=== PATIENT | female | born 1945 | race Caucasian/White ===

== ENCOUNTER 2019-11-20 08:49 | Outpatient (CLI) | payer MEDICARE, SELFPAY ==
--- NOTE | ~2019-11-20 | MM_ITS ---
EXAMINATION: MM screening [facility] BI w mary HISTORY: Screening mammogram TECHNIQUE: Craniocaudal and mediolateral oblique 3-D tomosynthesis images were obtained and synthetic 2-D images were generated. CAD analysis was submitted and interpreted. COMPARISON: 11/07/2018, 04/26/2018, 11/14/2017, 11/02/2017 BREAST PARENCHYMAL COMPOSITION: The breasts are heterogeneously dense, which may obscure small masses . FINDINGS: Scattered benign-appearing calcifications are present. There is no evidence of suspicious m ass, calcification, or architectural distortion to suggest malignancy in either breast. There has bee n no suspicious interval change. IMPRESSION: 1. No mammographic evidence of malignancy. 2. Recommend routine screening mammography in one year. BI-RADS Category 2: Benign finding(s). Reviewed, dictated and finalized at location A. 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
== END 2019-11-20 08:50 | disposition home or self-care (01) ==
LOC: ANHIMG 08:57
PROVIDERS: PCP Physician Assistant; Visit Provider Physician Assistant
DX: Z12.31 Encounter for screening mammogram for malignant neoplasm of breast (principal)
CPT/HCPCS: 77063; 77067

== ENCOUNTER 2020-12-17 09:44 | Outpatient (CLI) | payer MEDICARE, SELFPAY ==
--- NOTE | ~2020-12-17 | MM_ITS ---
EXAMINATION: MM screening [facility] w mary HISTORY: Screening TECHNIQUE: Craniocaudal and mediolateral oblique 3-D tomosynthesis images were obtained and synthetic 2-D images were generated. CAD analysis was submitted and interpreted. COMPARISON: Comparison to multiple prior studies sequentially, with oldest reviewed study dated 11/14. BREAST PARENCHYMAL COMPOSITION: The breasts are heterogeneously dense, which may obscure small masses . FINDINGS: There is no evidence of suspicious mass, calcification, or architectural distortion to sugg est malignancy in either breast. There has been no suspicious interval change. IMPRESSION: 1. No mammographic evidence of malignancy. 2. Recommend routine screening mammography in one year. BI-RADS Category 1: Negative Reviewed, dictated and finalized at location A.
== END 2020-12-17 09:45 | disposition home or self-care (01) ==
LOC: ANHIMG 09:46
PROVIDERS: PCP Physician Assistant; Visit Provider Physician Assistant
DX: Z12.31 Encounter for screening mammogram for malignant neoplasm of breast (principal)
CPT/HCPCS: 77063; 77067

== ENCOUNTER 2021-12-30 09:03 | Outpatient (CLI) | payer MEDICARE, SELFPAY ==
--- NOTE | ~2021-12-30 | DEXA_ITS ---
Bone Density Report Name: MEDINA CONNER Age: 76 Sex: Female Ethnicity: White Date of : 1945 Indication: postmenopausal; height loss; hysterectomy; Referring Provider: ELIZABETH, SPIKE MARADIAGA Study: Bone densitometry was performed. Exam Date: December 30, 2021 Accession number: [id number] Bone Density: Region BMD T-score Z-score Classification AP Spine (L1-L4) 0.934 -1.0 1.3 Normal Femoral Neck (Left) 0.883 0.3 2.4 Normal Total Hip (Left) 0.966 0.2 2.0 Normal Total Hip Bilateral Avg 0.977 0.3 2.0 Normal Femoral Neck (Right) 0.914 0.6 2.6 Normal Total Hip (Right) 0.987 0.4 2.1 Normal World Health Organization criteria for BMD impression classify patients as: Normal (T-score at or above -1.0), Osteopenia (T-score between -1.0 and -2.5), or Osteoporosis (T-score at or below -2.5). 10-year Fracture Risk: FRAX not reported because: All T-scores for Spine Total, Hip Total, Femoral Neck at or above -1.0 Previous Exams: Region Exam Age BMD T-score BMD Change BMD Change Date g/cm2 vs Baseline vs Previous AP Spine(L1-L4) 12/30/2021 76 0.934 -1.0 -0.082(-8.1%)# -0.002(-0.2%)# 04/09/2014 68 0.936 -1.0 -0.080(-7.9%)# -0.017(-1.7%)# 03/15/2009 63 0.953 -0.9 -0.064(-6.3%)* 0.009(0.9%) 03/04/2007 61 0.944 -0.9 -0.072(-7.1%)* -0.072(-7.1%)* 01/05/2005 59 1.016 -0.3 Total Hip(Left) 12/30/2021 76 0.966 0.2 -0.089(-8.5%)# -0.042(-4.2%)# 04/09/2014 68 1.008 0.5 -0.047(-4.5%)# -0.020(-1.9%)# 03/15/2009 63 1.028 0.7 -0.027(-2.6%) -0.019(-1.8%) 03/04/2007 61 1.047 0.9 -0.008(-0.8%) -0.008(-0.8%) 01/05/2005 59 1.055 0.9 Total Hip(Right) 12/30/2021 76 0.987 0.4 -0.078(-7.3%)# -0.058(-5.6%)# 04/09/2014 68 1.045 0.8 -0.020(-1.8%)# -0.038(-3.5%)# 03/15/2009 63 1.083 1.2 0.018(1.7%) 0.033(3.2%)* 03/04/2007 61 1.050 0.9 -0.015(-1.4%) -0.015(-1.4%) 01/05/2005 59 1.065 1.0 *Denotes significance at 95% confidence level, LSC for AP Spine = 0.022 g/cm2, LSC for Total Hip = 0.027 g/cm2 Clinical Information Provided by Patient: Has used the following medications: Vitamin D Has the following medical conditions: Hysterectomy Patient maximum height was 66 Menopause Age: 48 Drinks caffeinated beverages Onset of menses at age 13 Number of children 2 Impression: The patient has normal bone mass. No significant bone loss was observed. Discussion: BONE DENS
== END 2021-12-30 09:04 | disposition home or self-care (01) ==
PROVIDERS: PCP Physician Assistant; Visit Provider Physician Assistant
DX: Z78.0 Asymptomatic menopausal state (principal)
CPT/HCPCS: 77080

== ENCOUNTER 2022-01-20 08:49 | Outpatient (CLI) | payer MEDICARE, SELFPAY ==
--- NOTE | ~2022-01-20 | MM_ITS ---
EXAMINATION: MM screening [facility] BI w mary HISTORY: Screening mammogram TECHNIQUE: Craniocaudal and mediolateral oblique 3-D tomosynthesis images were obtained and synthetic 2-D images were generated. CAD analysis was submitted and interpreted. COMPARISON: 12/17/2020, 11/20/2019 bilateral screening mammogram examinations 11/07/2018 bilateral diagnostic mammogram BREAST PARENCHYMAL COMPOSITION: The breasts are heterogeneously dense, which may obscure small masses . FINDINGS: There is a history of bilateral benign needle biopsies of the breasts. Stable mild fibrogla ndular asymmetry. There is no evidence of suspicious mass, calcification, or architectural distortion to suggest malignancy in either breast. There has been no suspicious interval change. IMPRESSION: 1. No mammographic evidence of malignancy. 2. Recommend routine screening mammography in one year. BI-RADS Category 2: Benign finding(s). Reviewed, dictated and finalized at location A.
== END 2022-01-20 08:50 | disposition home or self-care (01) ==
LOC: ANHIMG 08:51
PROVIDERS: PCP Physician Assistant; Visit Provider Physician Assistant
DX: Z12.31 Encounter for screening mammogram for malignant neoplasm of breast (principal)
CPT/HCPCS: 77063; 77067

== ENCOUNTER 2022-12-07 13:24 | Emergency (ER) | payer MEDICARE, SELFPAY ==
--- NOTE | 2022-12-07 13:43 | ED.GENADULT ---
HPI - General Adult General Chief complaint: Unspecified Stated complaint: light headed/ legs weak/ hand numb Source: patient and RN notes reviewed History of Present Illness HPI narrative: 77 yo F with hx of HTN and hypercholesterolemia, presents to urgent care with intermittent right hand numbness, lightheadedness, and bilateral leg weakness. Pt states these episodes have occurred 2x in the last 2 weeks and states they last approximately 5 minutes. Pt states her last episode was this past Tuesday. Denies any symptoms at this time. Pt reports intermittent ear ringing and congestion the last couple weeks as well. Pt denies any chest pain, SOB, ERVIN, blurry vision, neck pain, recent illness including fevers, chills, V/D. Pt states she has a PCP appt in 2 weeks. Related Data Home Medications Medication Instructions Recorded Confirmed carvedilol 25 mg tablet mg 12/07/22 losartan 50 mg tablet mg 12/07/22 pantoprazole 40 mg tablet,delayed mg PO 12/07/22 release rosuvastatin 5 mg tablet mg 12/07/22 Allergies Allergy/AdvReac Type Severity Reaction Status Date / Time NKDA Allergy Unknown Uncoded 01/13/11 12:11 Review of Systems Review of Systems: CONSTITUTIONAL: Denies fever, chills, or sweats. EYES: Denies visual changes, redness, or discharge. ENT: Denies otalgia and sore throat CARDIOVASCULAR: Denies chest pain, palpitations, or edema. RESPIRATORY: Denies cough or dyspnea. GASTROINTESTINAL: Denies abdominal pain, nausea, vomiting, or diarrhea. GENITOURINARY: Denies dysuria or hematuria. SKIN: Denies rash or itching. MUSCULOSKELETAL: Denies back pain, joint pain, or myalgia. NEUROLOGIC: Denies headache, numbness, or weakness. PMFSH Comments At the time of my signature, I reviewed and agree with the nursing past medical, surgical, social, and family history. There is no relevant family history pertinent to the patient complaint. Exam Narrative: GENERAL: This is a well-nourished, well-developed patient, in no apparent distress. HEAD: normocephalic, atraumatic. EYES: PERRL. Sclera clear/white. Vision is grossly intact. EARS: External ears normal, auditory canals clear and without drainage, TMs normal without perforation. Hearing grossly intact. NOSE: External nose normal with no obvious nasal discharge, nares without redness, no rhinorrhea. THROAT: Mucous membranes moist, posterior pharynx clear. NECK: Neck supple, non-tender without lymphadenopathy, masses or thyromegaly. CARDIOVASCULAR: Regular rate and rhythm without murmurs, gallops, or rubs. RESPIRATORY: Clear to auscultation. Breath sounds equal bilaterally. No wheezes, rales, or rhonchi. GASTROINTESTINAL: Abdomen soft, non-tender, nondistended. Bowel sounds are active. No hepato-splenomegaly, or palpable masses. No guarding. SKIN: warm, intact with no suspicious lesions or rash, good texture and turgor. NEURO: awake, alert, and oriented to person, place and time. There were no obvious focal neurologic abnormalities. 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 Face is symmetrical, no droop. No sensation disability. EXTREMITIES: No clubbing, cyanosis, or edema. No joint tenderness, effusion, or edema noted. BACK: Nontender without deformity or crepitance. No flank tenderness. Course Course Level of Care: Express Care Visit Vital Signs Vital signs: Vital Signs Temperature 97.6 F 12/07/22 13:52 Pulse Rate 68 12/07/22 13:52 Respiratory Rate 16 12/07/22 13:52 Blood Pressure 156/78 H 12/07/22 13:52 Pulse Oximetry 100 12/07/22 13:52 Oxygen Delivery Room Air 12/07/22 13:52 Temperature 97.6 F 12/07/22 13:52 Pulse Rate 68 12/07/22 13:52 Respiratory Rate 16 12/07/22 13:52 Blood Pressure 156/78 H 12/07/22 13:52 Pulse Oximetry 100 12/07/22 13:52 Oxygen Delivery Room Air 12/07/22 13:52 reviewed. Medical Decision Making MDM Narrative Medical decision making narrative: Take the meclizine 3x/day as needed for ear
[2022-12-07 13:52] VITALS: BP 156/78; PULSE 68; RESP 16; TEMP 36.4; O2SAT 100
== END 2022-12-07 14:18 | disposition home or self-care (01) ==
PROVIDERS: Emergency Provider Nurse Practitioner Family; PCP Physician Assistant
DX: R42 Dizziness and giddiness (principal); I10 Essential (primary) hypertension
CPT/HCPCS: 99213; G0463

== ENCOUNTER 2022-12-12 13:26 | Observation (INO) | payer MEDICARE, SELFPAY ==
[2022-12-12] VITALS (10 sets, daily range): BP systolic 133–174; BP diastolic 68–87; PULSE 68–78; RESP 11–20; TEMP 36.6–37; O2SAT 18–100; BMI 29.1
--- NOTE | ~2022-12-12 | MR_ITS ---
MRI of the brain Clinical History: TIA Technique: Axial and sagittal T1-weighted images were acquired. These were followed by axial T2-weigh mitchell, diffusion weighted, gradient, and FLAIR images. Following intravenous administration of 16 cc Mu ltiHance gadolinium, T1-weighted fat-sat imaging was performed in the axial and coronal planes. Findings: There is no acute infarct, intracranial hemorrhage, or mass lesion. There are mild chronic white matter changes in the periventricular white matter bilaterally. Ventricles and subarachnoid spaces are unremarkable. Orbits are unremarkable. Paranasal sinuses and m astoid air cells are clear. Major intracranial flow voids are intact. Sagittal midline structures are intact. No abnormal postcontrast enhancement identified. IMPRESSION: No acute abnormality. Minimal chronic white matter changes. Reviewed, dictated and finalized at location .
--- NOTE | ~2022-12-12 | CT_ITS ---
Non-contrast Head CT History: Intermittent bilateral hand numbness Technique: Axial non-contrast imaging of the brain was performed. Dose reduction technique was used on this scan by utilizing automated exposure control and iterative reconstruction technique. The dose -length product (DLP) was 605.33 mGy-cm. Findings: There is no evidence of intracranial hemorrhage, mass lesion, or acute infarct. Brain par enchyma appears normal. The ventricles and subarachnoid spaces are normal in size. The calvarium ap pears normal. The visualized paranasal sinuses and mastoid air cells are clear. Impression: No significant abnormality seen. Reviewed, dictated and finalized at location . Impression: No significant abnormality seen.
--- NOTE | ~2022-12-12 | CT_ITS ---
EXAMINATION: CTA neck DATE: 12/13/2022 13:46 INDICATION: Transient ischemic attack. TECHNIQUE: Computed tomographic angiography (CTA) of the neck was performed with 100 mL Omnipaque-350 intravenous contrast. Automated exposure control and iterative reconstruction technique were employe d. The dose-length product was 465.63 mGy-cm. Maximum intensity projection 3D-reconstructions were cr eated by the technologist on a separate workstation. COMPARISON: None. FINDINGS: There is mild scarring at the lung apices. There are nodules in the thyroid measuring up to 4 mm, likely not clinically significant. There is a 15 x 11 mm node in the superior mediastinum. Lef t vertebral artery is dominant. There is no significant stenosis of the vertebral arteries. There is plaque in the proximal internal carotid arteries. There is 0% stenosis of the proximal right internal carotid artery relative to normal distal artery lumen diameter (NASCET criteria). There is 0% stenos is of the proximal left internal carotid artery relative to normal distal artery lumen diameter. Ther e is severe cervical spondylosis. IMPRESSION: 1. 0% stenosis of the proximal internal carotid arteries relative to normal distal artery lumen diame ters (NASCET criteria). 2. Mildly enlarged mediastinal lymph node, likely reactive. Reviewed, dictated and finalized at location A. IMPRESSION: 1. 0% stenosis of the proximal internal carotid arteries relative to normal dis james artery lumen diameters (NASCET criteria). 2. Mildly enlarged mediastinal lymph node, likely reactive.
--- NOTE | 2022-12-12 13:28 | ECG_ITS ---
Measurements Intervals [place] Rate: 74 P: 15 AL: 196 QRS: -44 QRSD: 170 T: 110 QT: 402 QTc: 448 Interpretive Statements SINUS RHYTHM LEFT AXIS DEVIATION POSSIBLE LEFT ATRIAL ENLARGEMENT LEFT BUNDLE BRANCH BLOCK BASELINE ARTIFACT- I, II, AVR ABNORMAL ECG NO PREVIOUS ECG AVAILABLE FOR COMPARISON Electronically Signed On 12-12-2022 20:18:33 CDT by Armando Doyle D.O.
--- NOTE | 2022-12-12 16:08 | ED.GENADULT ---
HPI - General Adult General Chief complaint: Neuro Symptoms/Deficit Stated complaint: numbness in both arms. Time Seen by Provider: 12/12/22 15:38 History of Present Illness HPI narrative: 77-year-old female presented to the emergency department for evaluation of bilateral hand numbness. Patient reports a few weeks ago she did have 2 episodes where she had some increased heaviness to her right arm. These pills lasted approximately 10 minutes. 1 episode occurred while she was crocheting and the other occurred while she was resting. Patient had an episode today where she had onset of bilateral arm numbness but had numbness of her thumb and forefinger that lasted about 10 minutes. Patient denied any other associated numbness or weakness. Patient denied any lower extremity symptoms. Patient denies any slurring of speech difficulty with word finding. Patient has no prior history of strokes or abnormal heart rhythms. Patient does have history of mitral valve prolapse, congestive heart failure and a left bundle jeff block. Patient does not take aspirin and is not on any blood thinners. Upon arrival to the ED patient states that all the symptoms have since resolved and patient has no complaints at this time. Related Data Home Medications Medication Instructions Recorded Confirmed carvedilol 25 mg tablet mg 12/07/22 losartan 50 mg tablet mg 12/07/22 pantoprazole 40 mg tablet,delayed mg PO 12/07/22 release rosuvastatin 5 mg tablet mg 12/07/22 Allergies Allergy/AdvReac Type Severity Reaction Status Date / Time No Known Drug Allergies Allergy Verified 12/12/22 16:01 Review of Systems Review of Systems: All systems reviewed & are unremarkable except as noted in HPI and below Exam Narrative: APPEARANCE: Well appearing, no pain, no distress, well-nourished. HEAD: normocephalic, atraumatic. EYES: PERRLA/EOMI, conjunctivae clear. NOSE: Normal no drainage EARS: Some fluid behind left TM. No erythema NECK: Supple. No adenopathy, no masses. RESPIRATORY: Airway patent, respirations nonlabored. Clear to auscultation bilaterally, no rales, rhonchi, wheezing. CARDIOVASCULAR: Regular rate and rhythm without murmurs rubs or gallops. ABDOMINAL: Soft, nontender, nondistended, normal bowel sounds MUSCULOSKELETAL: Moves all extremities. Strength/ROM intact, No edema, No calf tenderness. NEURO: Alert. Cranial nerves II through XII intact. Grossly intact. No ataxia, no drift, normal [id number]. Normal strength and reflexes. SKIN: Warm, dry. Normal Color Course Course Emergency Course: 77-year-old female with report of left arm heaviness and numbness of her thumb and forefinger. Patient reports symptoms lasted about 10 minutes and have resolved. Patient is back to her baseline. Head CT was ordered to evaluate for acute stroke. Patient was treated with full dose aspirin. Patient was updated on the plan for obtaining a CT scan and was updated on the potential plan for admission for ruling out of a stroke by MRI. Patient reports she has no contraindications to getting an MRI. Case discussed with the hospitalist and patient was accepted for admission. Patient was stable at time of admission. Vital Signs Vital signs: Vital Signs Temperature 98.6 F 12/12/22 13:29 Pulse Rate 78 12/12/22 13:29 Respiratory Rate 16 12/12/22 13:29 Blood Pressure 174/84 H 12/12/22 13:29 Pulse Oximetry 95 12/12/22 13:29 Oxygen Delivery Room Air 12/12/22 13:29 Temperature 98.6 F 12/12/22 13:29 Pulse Rate 69 12/12/22 18:01 Respiratory Rate 15 12/12/22 18:01 Blood Pressure 151/70 H 12/12/22 18:01 Pulse Oximetry 96 12/12/22 18:01 Oxygen Delivery Room Air 12/12/22 13:29 Medical Decision Making Vital Signs Vital Signs: Vital Signs Temperature 98.6 F 12/12/22 13:29 Pulse Rate 78 12/12/22 13:29 Respiratory Rate 16 12/12/22 13:29 Blood Pressure 174/84 H 12/12/22 13:29 Pulse Oximetry 95 03
[2022-12-12] MEDS: ASPIRIN 81 MG CHEWABLE TABLET 324 MG PO (16:36)
[2022-12-12 17:17] LABS: Basophils Absolute Auto 0.1 K/mm3 (0.0-0.1); Basophils Percent Auto 1.4 % (0.2-1.2); Eosinophils Absolute Auto 0.3 K/mm3 (0-0.3); Eosinophils Percent Auto 3.6 % (0-4.4); Hematocrit 45.6 % (37.0-47.0); Hemoglobin 14.3 g/dL (12.0-15.0); Immature Granulocyte Absolute 0.02 K/mm3 (0.00-0.031); Immature Granulocyte Percent A 0.2 % (0-0.5); Lymphocytes Absolute Auto 2.62 K/mm3 (0.9-3.2); Lymphocytes Percent Auto 30.6 % (18.3-44.2); Mean Corpuscular HGB Conc 31.4 g/dl (32-36); Mean Corpuscular Hemoglobin 24.7 pg (26-34); Mean Corpuscular Volume 78.9 fl (80-100); Mean Platelet Volume 10.1 fl (7.4-10.4); Monocytes Absolute Auto 0.8 K/mm3 (0.1-0.6); Monocytes Percent Auto 8.8 % (2.6-8.5); Neutrophils Absolute Auto 4.8 K/mm3 (1.3-6.7); Neutrophils Percent Auto 55.4 % (45.5-73.1); Platelet Count Result 659 k/mm3 (150-375); Red Blood Count 5.78 M/mm3 (4.2-5.4); Red Cell Distribution Width 17.2 % (11.5-14.5); White Blood Count 8.6 K/mm3 (4.5-10.0)
[2022-12-12 17:24] LABS: Appearance Urine Clear (Clear); Bilirubin Urine Negative (Negative); Blood Urine Negative (Negative); Color Urine Yellow (Yellow); Glucose Urine UA Negative (Negative); Ketones Urine Negative (Negative); Leukocyte Esterase Ur Negative LEU/UL (Negative); Nitrate Urine Negative (Negative); Protein Urine Negative (Negative); Specific Grav Ur 1.014 (1.001-1.035); Urobilinogen Urine 0.2 mg/dL (<2.0); pH Urine 5.5 (5.0-9.0)
[2022-12-12 17:26] LABS: Lactic Acid Reflex 0.8 mmol/L (0.7-2.0)
[2022-12-12 17:29] LABS: INR 1.1; Partial Thromboplastin Time 29.4 SECONDS (22.3-36.8); Prothrombin Time 13.7 Seconds (11.1-14.7)
[2022-12-12 17:30] LABS: Add Urine Microscopic? NO
[2022-12-12 17:41] LABS: Alanine Aminotransferase 23 U/L (6-35); Albumin Level 4.5 g/dL (3.5-5.1); Alkaline Phosphatase 76 U/L (38-126); Anion Gap 4 mmol/L (8-16); Aspartate Amino Transferase 36 U/L (14-36); Bilirubin,Total 0.8 mg/dL (0.2-1.3); Blood Urea Nitrogen 22 mg/dL (7-17); Calcium 9.7 mg/dL (8.4-10.2); Carbon Dioxide 28 mmol/L (22-30); Chloride 106 mmol/L (98-107); Estimated CRCL calculation 39 ml/min; Estimated Glomerular Filt Rate 44; Glucose 98 mg/dL (65-110); Potassium 4.3 mmol/L (3.4-5.0); Sodium 138 mmol/L (137-145)
--- NOTE | 2022-12-12 19:41 | PM.IMHP ---
H&P: HPI History of Present Illness Date/Time: 12/12/22 19:41 Chief Complaint: neurological symptoms Narrative: this is a 77-year-old female patient who has a history of hypertension. The patient stated that a few weeks ago she had 2 episodes where she had increase heaviness to her right arm. This lasted approximately 10 minutes. One episode occurred when she was crocheting in the other 1 occurred when she was resting. Today the patient had bilateral arm numbness and heaviness. She had numbness to her thumb and forefinger that lasted about 10 minutes. The patient has no prior history of having any CVAs. She does have a history of mitral valve prolapse. She also has congestive heart failure and does not take any blood thinners or aspirin. Patient's symptoms have resolved upon arrival to the emergency room. Head CT shows no significant Abnormalities. Creatinine is 1.2. The patient is moving without difficulty she is eating and drinking without difficulty. No focal weakness. Neurology has been consulted. The patient is being admitted to observation status on the date of service of 12/12/2022 Review of Systems Review of Systems: see HPI All systems reviewed & are unremarkable except as noted in HPI and below Constitutional: Constitutional: Reports as per HPI and Reports no additional constitutional complaints Eyes: Eyes: Reports as per HPI and Reports no additional eye complaints ENT: Reports system reviewed and no additional complaints, except as documented and Reports Normal hearing present Cardiovascular: Cardiovascular: Reports no additional cardiovascular complaints Respiratory: Respiratory: Reports no additional respiratory complaints and Reports no additional respiratory complaints Gastrointestinal: Gastrointestinal: Reports as per HPI and Reports no additional gastrointestinal complaints Musculoskeletal: Musculoskeletal: Reports no additional musculoskeletal complaints Integumentary/Breasts: Skin/Breast: Reports system reviewed and no additional complaints, except as docu and Reports as per HPI Neurologic: Reports system reviewed and no additional complaints, except as documented, Reports as per HPI and Reports Normal hearing present Psychiatric: Psychiatric: Reports no additional psychiatric complaints and Reports as per HPI Endocrine: Endocrine: Reports no additional endocrine complaints Hematologic/Lymphatic: Hematologic/Lymphatic: Reports no additional hematologic/lymphatic complaints Allergic/Immunologic: Allergic/Immunologic: Reports no additional allergic/immunologic complaints [facility] Past Medical History Medical History Bundle branch block Cardiomyopathy CHF (congestive heart failure), NYHA class I Chronic GERD Hyperlipidemia Hypertension Mitral regurgitation Surgical History Surgical History (Updated 12/13/22 @ 00:13 by Alena Sharma NP) H/O tubal ligation H/O: hysterectomy History of bladder surgery History of carpal tunnel release Family History Family History Mother Heart disease Social History Social History (Updated 12/13/22 @ 00:14 by Alena Sharma NP) Social History: she lives alone in her home. She has2 kids and is . 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 Code status full code Smoking status: Never smoker Alcohol intake: never Substance use: never Lack of Transportation: No Lack of Food: Never True Current Housing: I Have Housing Concerned About Future Housing: No Difficulty Paying Gas/Electric Bills: No Difficulty Paying for Meds: No Currently Unemployed: No Education: High School Diploma/GED Difficulty w/ Childcare or Family Care: No Spiritual care concerns: No Meds Home Medications and Allergies Home Medications Medication Instructions Recorded Confirmed Type carvedilol 25 mg tablet 25 mg PO BID 12/07
--- NOTE | 2022-12-12 20:10 | ADMGEN ---
This patient, Amaris Sparks, was admitted to Medical Room 252-01. Patient/family oriented to hospital policies and general routines including ID bracelet, bed and alarms, visiting hours, pain management, procedures, bathroom and other care routines, personal items, smoking policy, room service/diet, and visiting hours. Information on how to activate the Rapid Response Team has been discussed. Patient/Family are encouraged to report perceived risks to care and to ask questions if they do not understand what they are told or what they should do.
[2022-12-13] VITALS (7 sets, daily range): BP systolic 154–164; BP diastolic 58–65; PULSE 51–68; RESP 16–20; TEMP 36.3–36.4; O2SAT 96–98
--- NOTE | 2022-12-13 | ECHO_ITS ---
Patient Info Name: Amaris Sparks Age: 77 years : 1945 Gender: Female Ht: 66 in Wt: 180 lbs BSA: 1.97 m2 HR: 63 bpm BP: 154 / 58 mmHg Heart Rhythm: Sinus Rhythm, Left Bundle Branch Block Technical Quality: Good Exam Date: 12/13/2022 8:21 AM Exam Location: [facility] Patient Status: Inpatient Admit Date: 12/12/2022 Staff Ordering Physician: Janette Sánchez APRN Internet Consultant: Andreina Pradhan RDCS Attending Provider: Paige Juan DO Exam Type: CA echo doppler w bubble study Study Info Indications - TIA Complete two-dimensional, color flow and Doppler transthoracic echocardiogram is performed with agitated saline. Contrast/Agitated Saline Contrast/Ag. Saline: Agitated Saline Amount: 20.00 ml Administered By: Sophie Maki RDCS Existing IV Access: Yes IV Access Condition: patent with no signs of infiltration Summary 1. Left ventricular chamber dimension is normal. 2. Left ventricular systolic function is mildly reduced, estimated at 45-50%. 3. There is mildly increased left ventricular wall thickness. 4. Left ventricular septal wall motion is abnormal with septal motion related to bundle branch block. 5. The left ventricular diastolic function is grade I diastolic dysfunction. 6. Right ventricular systolic function is normal. 7. Left atrial chamber dimension is mildly enlarged. 8. Right atrial chamber dimension is normal. 9. The mitral valve annulus is mildly calcified. 10. There is mild mitral valve regurgitation. 11. There is mild tricuspid valve regurgitation. 12. Normal inferior vena cava with >50% collapse upon inspiration consistent with normal right atrial pressure, 3 mmHg. Left Ventricle Left ventricular chamber dimension is normal. Left ventricular systolic function is mildly reduced, estimated at 45-50%. There is mildly increased left ventricular wall thickness. Left ventricular septal wall motion is abnormal with septal motion related to bundle branch block. The left ventricular diastolic function is grade I diastolic dysfunction. Global longitudinal strain is abnormal at -15 %. Right Ventricle Right ventricular chamber dimension is normal. Right ventricular systolic function is normal. Left Atria Left atrial chamber dimension is mildly enlarged. Right Atria Right atrial chamber dimension is normal. Atrial Septum Intact interatrial septum visualized by color flow and agitated saline imaging. Aortic Valve There is mild aortic valve sclerosis. There is no aortic valve stenosis. There is no aortic valve regurgitation. Pulmonic Valve The pulmonic valve is not well visualized. Mitral Valve There is no mitral valve stenosis. There is mild mitral valve regurgitation. The mitral valve annulus is mildly calcified. Tricuspid Valve There is no significant tricuspid valve stenosis. There is mild tricuspid valve regurgitation. Pericardium/Pleural There is no pericardial effusion. Inferior Vena Cava Normal inferior vena cava with >50% collapse upon inspiration consistent with normal right atrial pressure, 3 mmHg. Aorta The aortic root size at the sinus of Valsalva is normal. Left Ventricular Outflow Tract Name Value Normal LVOT 2D
[2022-12-13 06:01] LABS: Basophils Absolute Auto 0.1 K/mm3 (0.0-0.1); Basophils Percent Auto 1.5 % (0.2-1.2); Eosinophils Absolute Auto 0.3 K/mm3 (0-0.3); Eosinophils Percent Auto 4.1 % (0-4.4); Hematocrit 45.7 % (37.0-47.0); Hemoglobin 14.2 g/dL (12.0-15.0); Immature Granulocyte Absolute 0.02 K/mm3 (0.00-0.031); Immature Granulocyte Percent A 0.3 % (0-0.5); Lymphocytes Absolute Auto 2.79 K/mm3 (0.9-3.2); Lymphocytes Percent Auto 35.9 % (18.3-44.2); Mean Corpuscular HGB Conc 31.1 g/dl (32-36); Mean Corpuscular Volume 80.6 fl (80-100); Mean Platelet Volume 10.5 fl (7.4-10.4); Monocytes Absolute Auto 0.8 K/mm3 (0.1-0.6); Monocytes Percent Auto 10.6 % (2.6-8.5); Neutrophils Absolute Auto 3.7 K/mm3 (1.3-6.7); Neutrophils Percent Auto 47.6 % (45.5-73.1); Platelet Count Result 629 k/mm3 (150-375); Red Blood Count 5.67 M/mm3 (4.2-5.4); Red Cell Distribution Width 17.3 % (11.5-14.5); White Blood Count 7.8 K/mm3 (4.5-10.0)
[2022-12-13 06:14] LABS: Alanine Aminotransferase 22 U/L (6-35); Albumin Level 4.2 g/dL (3.5-5.1); Alkaline Phosphatase 69 U/L (38-126); Anion Gap 6 mmol/L (8-16); Aspartate Amino Transferase 40 U/L (14-36); Bilirubin,Total 0.8 mg/dL (0.2-1.3); Blood Urea Nitrogen 26 mg/dL (7-17); Calcium 8.9 mg/dL (8.4-10.2); Carbon Dioxide 29 mmol/L (22-30); Chloride 107 mmol/L (98-107); Estimated CRCL calculation 51 ml/min; Estimated Glomerular Filt Rate > 60; Glucose 93 mg/dL (65-110); Potassium 4.4 mmol/L (3.4-5.0); Sodium 142 mmol/L (137-145)
[2022-12-13 07:09] LABS: Folic Acid 14.9 ng/mL (2.76->20)
[2022-12-13] MEDS: ROSUVASTATIN 5 MG TABLET PO (09:08)
[2022-12-13] MEDS: LOSARTAN POTASSIUM 50 MG TABLET PO ×2 (09:08→17:42)
[2022-12-13] MEDS: ASPIRIN 81 MG CHEWABLE TABLET PO (09:08)
[2022-12-13] MEDS: PANTOPRAZOLE 40 MG TABLET PO (09:08)
[2022-12-13] MEDS: OMEGA 3 POLYUNSAT FATTY ACIDS 1 GM CAP PO (09:08)
[2022-12-13] MEDS: carvediloL 25 MG TABLET PO (09:08)
[2022-12-13] MEDS: MECLIZINE HCL 25 MG TABLET PO ×3 (09:08→17:43)
--- NOTE | 2022-12-13 09:48 | WPDNEURCNPN ---
Assessment and Plan Assessment and plan (1) CHF (congestive heart failure), NYHA class I: Code(s): I50.9 - Heart failure, unspecified Status: Acute (2) Hyperlipidemia: Code(s): E78.5 - Hyperlipidemia, unspecified Status: Acute (3) Transient cerebral ischemia: Code(s): G45.9 - Transient cerebral ischemic attack, unspecified Status: Acute (4) Hypertension: Code(s): I10 - Essential (primary) hypertension Status: Acute Plan Amaris Sparks is a 77 year old female with a history of HTN, bundle branch block, CHF, HLD presenting due to concerns for upper extremity weakness. Possible TIA, but with bilateral upper extremity involvement, would be atypical. Other considerations include radiculopathy and compressive neuropathy. - Continue Aspirin 81mg daily - Check LDL, may need statin (goal <70) - MRI brain w/o contrast - CTA brain/carotid - Surface echocardiogram Consult date: 12/14/22 Reason for consult: Concern for stroke HPI: Amaris Sparks is a 77 year old female with a history of HTN, bundle branch block, CHF, HLD presenting due to concerns for upper extremity weakness. Patient reports that a few weeks ago she had two episodes of increased heaviness in her right arm which lasted about ten minutes. With the first episode she was crochetting and with the second episode she was just resting. On 12/12 she presented due to bilateral upper extremity numbness and heaviness. She had numbness in her thumb and forefinger that lasted about ten minutes. Patient presented to [facility] ED, by the time she arrived her symptoms had resolved. Her blood pressure was in the 150s-170s systolic. Labs were unrevealing and CT head showed no significant abnormalities. Patient was not taking daily aspirin so she was started on ASA 81mg daily. Review of Systems Constitutional: Constitutional: Reports no additional constitutional complaints Eyes: Eyes: Reports no additional eye complaints ENT: Reports system reviewed and no additional complaints, except as documented Cardiovascular: Cardiovascular: Reports no additional cardiovascular complaints Respiratory: Respiratory: Reports no additional respiratory complaints Gastrointestinal: Gastrointestinal: Reports no additional gastrointestinal complaints Genitourinary: Genitourinary: Reports no additional female genitourinary complaints Musculoskeletal: Musculoskeletal: Reports no additional musculoskeletal complaints Integumentary/Breasts: Skin/Breast: Reports system reviewed and no additional complaints, except as docu Neurologic: Reports as per HPI Psychiatric: Psychiatric: Reports no additional psychiatric complaints [facility] Past Medical History Medical History Bundle branch block Cardiomyopathy CHF (congestive heart failure), NYHA class I Chronic GERD Hyperlipidemia Hypertension Mitral regurgitation Surgical History Surgical History H/O tubal ligation H/O: hysterectomy History of bladder surgery History of carpal tunnel release Family History Family History Mother Heart disease Social History Social History Social History: she lives alone in her home. She has2 kids and is . 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 Code status full code Smoking status: Never smoker Alcohol intake: never Substance use: never Lack of Transportation: No Lack of Food: Never True Current Housing: I Have Housing Concerned About Future Housing: No Difficulty Paying Gas/Electric Bills: No Difficulty Paying for Meds: No Currently Unemployed: No Education: High School Diploma/GED Difficulty w/ Childcare or Family Care: No Spiritual care concerns: No Meds Home Medications and Allergies Home Medications M
[2022-12-13 13:34] LABS: Cholesterol 160 mg/dL (0-200); HDL Direct 46 mg/dL; Triglycerides 83 mg/dL (<150)
[2022-12-13 13:45] LABS: LDL Cholesterol Direct 84 mg/dL
--- NOTE | 2022-12-13 15:52 | PM.DS ---
DS: Admitting Diagnosis Discharge Date 12/13/2022 Admitting Diagnosis Transient ischemic attack DS: Discharge Diagnosis Discharge Diagnosis (1) Transient cerebral ischemia: Code(s): G45.9 - Transient cerebral ischemic attack, unspecified Status: Suspected Assessment and Plan: Possible TIA versus neuropathy. Symptoms resolved Started on daily aspirin 81 mg PO neurology consulted MRI of the brain negative for acute infarct. echo without PFO/ASD, shows mild diastolic dysfunction and normal EF, mild LVH CTA head and neck without arterial stenosis Losartan increased 100 mg daily for SBP>140 and counseled to monitor BP daily at home. Crestor increased 20 mg daily to keep LDL<70. LDL 84 B12, folate and TSH within normal limits. (2) Hypertension: Qualifiers: Hypertension type: primary hypertension Qualified Code(s): I10 - Essential (primary) hypertension Code(s): I10 - Essential (primary) hypertension Status: Chronic Assessment and Plan: continue Coreg and losartan dose increased. SBP 150-160s (3) Hyperlipidemia: Qualifiers: Hyperlipidemia type: mixed hyperlipidemia Qualified Code(s): E78.2 - Mixed hyperlipidemia Code(s): E78.5 - Hyperlipidemia, unspecified Status: Chronic Assessment and Plan: continue with rosuvastatin and increased to high intensity (4) CHF (congestive heart failure), NYHA class I: Qualifiers: Congestive heart failure chronicity: chronic Congestive heart failure type: diastolic Qualified Code(s): I50.32 - Chronic diastolic (congestive) heart failure Code(s): I50.9 - Heart failure, unspecified Status: Acute Assessment and Plan: Chronic, not in acute exacerbation. Diastolic CHF. 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 Counseled on conservative care. DS: Summary Hospital Course Reason for hospitalization: hand and arm paresthesia Hospital Course: Amaris Sparks?is a 77-year-old female patient with hypertension.?She reported intermittent episodes of increased heaviness to her right arm with two episodes in the past 2 weeks, lasting approximately 10 minutes.? One episode occurred when she was crocheting and the other occurred when she was resting.? On the day of admission, she had bilateral arm numbness and heaviness.? She had numbness to her thumb and forefinger that lasted about 10 minutes.? The patient has no prior history of stoke.? She has a history of mitral valve prolapse and mild CHF.? Symptoms resolved upon arrival to the emergency room.? Head CT shows no significant?abnormalities.? Creatinine was mildly elevated at 1.2.? No focal weakness, facial droop, or dysphagia.? Neurology was consulted.? She was admitted for observation and stroke work-up. CTA head and neck was negative for LVO or significan stenosis. MRI brain was negative for acute infarct. Echo was without PFO or ASD. Lipid panel showed LDL 84 and statin was increased to high-intensity therapy. Aspirin 81 mg olga
== END 2022-12-13 17:50 | disposition home or self-care (01) ==
LOC: ANHED 17:52 → ANH2MED 19:22
PROVIDERS: Nurse Practitioner; Nurse Practitioner Family; Admitting Provider Student in an Organized Health Care Education/Training Program; Emergency Provider Emergency Medicine; PCP Physician Assistant; Visit Provider Student in an Organized Health Care Education/Training Program
DX: G45.9 Transient cerebral ischemic attack, unspecified (principal); I11.0 Hypertensive heart disease with heart failure; I50.9 Heart failure, unspecified; I42.9 Cardiomyopathy, unspecified; E78.5 Hyperlipidemia, unspecified; I44.7 Left bundle-branch block, unspecified; K21.9 Gastro-esophageal reflux disease without esophagitis; I45.4 Nonspecific intraventricular block; I34.0 Nonrheumatic mitral (valve) insufficiency; R94.31 Abnormal electrocardiogram [ECG] [EKG]; R20.0 Anesthesia of skin; Z79.899 Other long term (current) drug therapy
CPT/HCPCS: 36415; 70450; 70498; 70553; 80053; 80061; 81003; 82607; 82746; 83605; 83735; 84443; 85025; 85610; 85730; 93005; 93306; 96375; 99285; A9270; A9577; G0378; Q9967

== ENCOUNTER 2023-02-10 11:42 | Outpatient (CLI) | payer MEDICARE, SELFPAY ==
[2023-02-10 12:05] LABS: Basophils Absolute Auto 0.1 K/mm3 (0.0-0.1); Basophils Percent Auto 1.5 % (0.2-1.2); Eosinophils Absolute Auto 0.3 K/mm3 (0-0.3); Eosinophils Percent Auto 4.2 % (0-4.4); Hematocrit 45.4 % (37.0-47.0); Hemoglobin 14.2 g/dL (12.0-15.0); Immature Granulocyte Absolute 0.02 K/mm3 (0.00-0.031); Immature Granulocyte Percent A 0.2 % (0-0.5); Lymphocytes Percent Auto 29.7 % (18.3-44.2); Mean Corpuscular HGB Conc 31.3 g/dl (32-36); Mean Corpuscular Hemoglobin 24.6 pg (26-34); Mean Corpuscular Volume 78.7 fl (80-100); Mean Platelet Volume 10.3 fl (7.4-10.4); Monocytes Absolute Auto 0.6 K/mm3 (0.1-0.6); Monocytes Percent Auto 7.9 % (2.6-8.5); Neutrophils Absolute Auto 4.6 K/mm3 (1.3-6.7); Neutrophils Percent Auto 56.5 % (45.5-73.1); Platelet Count Result 789 k/mm3 (150-375); Red Blood Count 5.77 M/mm3 (4.2-5.4); White Blood Count 8.1 K/mm3 (4.5-10.0)
[2023-02-10 12:57] LABS: Alanine Aminotransferase 27 U/L (6-35); Albumin Level 4.7 g/dL (3.5-5.1); Alkaline Phosphatase 82 U/L (38-126); Anion Gap 8 mmol/L (8-16); Aspartate Amino Transferase 34 U/L (14-36); Bilirubin,Total 0.9 mg/dL (0.2-1.3); Blood Urea Nitrogen 23 mg/dL (7-17); CRP < 0.5 mg/dL (<1.0); Calcium 9.4 mg/dL (8.4-10.2); Carbon Dioxide 27 mmol/L (22-30); Chloride 104 mmol/L (98-107); Estimated Glomerular Filt Rate 54; Glucose 99 mg/dL (65-110); Potassium 4.4 mmol/L (3.4-5.0); Sodium 139 mmol/L (137-145)
[2023-02-10 13:28] LABS: Ferritin 8.29 ng/mL (11.1-264)
== END 2023-02-10 11:43 | disposition home or self-care (01) ==
LOC: ANHLAB 11:45
PROVIDERS: PCP Physician Assistant; Visit Provider Internal Medicine Hematology & Oncology
DX: D47.3 Essential (hemorrhagic) thrombocythemia (principal)
CPT/HCPCS: 36415; 80053; 82728; 85025; 86140

== ENCOUNTER 2023-03-02 13:56 | Outpatient (CLI) | payer MEDICARE, SELFPAY ==
[2023-03-02 14:13] LABS: Basophils Absolute Auto 0.1 K/mm3 (0.0-0.1); Basophils Percent Auto 1.6 % (0.2-1.2); Eosinophils Absolute Auto 0.5 K/mm3 (0-0.3); Eosinophils Percent Auto 5.2 % (0-4.4); Hemoglobin 14.2 g/dL (12.0-15.0); Immature Granulocyte Absolute 0.02 K/mm3 (0.00-0.031); Immature Granulocyte Percent A 0.2 % (0-0.5); Lymphocytes Absolute Auto 2.22 K/mm3 (0.9-3.2); Mean Corpuscular HGB Conc 31.6 g/dl (32-36); Mean Corpuscular Hemoglobin 24.6 pg (26-34); Mean Platelet Volume 10.4 fl (7.4-10.4); Monocytes Absolute Auto 0.6 K/mm3 (0.1-0.6); Monocytes Percent Auto 6.2 % (2.6-8.5); Neutrophils Absolute Auto 5.5 K/mm3 (1.3-6.7); Neutrophils Percent Auto 61.8 % (45.5-73.1); Platelet Count Result 829 k/mm3 (150-375); Red Blood Count 5.77 M/mm3 (4.2-5.4); Red Cell Distribution Width 15.9 % (11.5-14.5); White Blood Count 8.9 K/mm3 (4.5-10.0)
[2023-03-02 16:59] LABS: Anion Gap 8 mmol/L (8-16); Blood Urea Nitrogen 20 mg/dL (7-17); Calcium 9.5 mg/dL (8.4-10.2); Carbon Dioxide 28 mmol/L (22-30); Chloride 104 mmol/L (98-107); Estimated Glomerular Filt Rate 54; Glucose 120 mg/dL (65-110); Potassium 4.2 mmol/L (3.4-5.0); Sodium 140 mmol/L (137-145)
[2023-03-02 21:07] LABS: Iron 52 ug/dL (37-170)
[2023-03-02 21:17] LABS: Percent Iron Saturation 11 % (20-50)
[2023-03-02 21:44] LABS: Ferritin 8.18 ng/mL (11.1-264)
[2023-03-07 15:52] LABS: Exon 14; Gene JAK2; JAK2 V617F Mutation Detected (Not Detected); Mutation Frequency 21.5; Mutation Type missense; Specimen Source Blood
== END 2023-03-02 13:57 | disposition home or self-care (01) ==
LOC: ANHLAB 13:58
PROVIDERS: PCP Physician Assistant; Visit Provider Internal Medicine Hematology & Oncology
DX: D64.9 Anemia, unspecified (principal); D47.3 Essential (hemorrhagic) thrombocythemia
CPT/HCPCS: 36415; 80048; 81270; 82728; 83540; 83550; 85025

== ENCOUNTER 2023-03-15 09:12 | Outpatient (CLI) | payer MEDICARE, SELFPAY ==
--- NOTE | ~2023-03-15 | MM_ITS ---
EXAMINATION: MM screening kat BI w mary HISTORY: Screening mammogram TECHNIQUE: Craniocaudal and mediolateral oblique 3-D tomosynthesis images were obtained and synthetic 2-D images were generated. CAD analysis was submitted and interpreted. COMPARISON: January 20, 2022, December 17, 2020, November 20, 2019 bilateral screening mammogram examinati ons BREAST PARENCHYMAL COMPOSITION: The breasts are heterogeneously dense, which may obscure small masses . FINDINGS: History of bilateral benign breast biopsies. There is no evidence of suspicious mass, calci fication, or architectural distortion to suggest malignancy in either breast. There has been no suspi cious interval change. IMPRESSION: 1. No mammographic evidence of malignancy. 2. Recommend routine screening mammography in one year. BI-RADS Category 1: Negative Reviewed, dictated and finalized at location A.
== END 2023-03-15 09:13 | disposition home or self-care (01) ==
PROVIDERS: PCP Physician Assistant; Visit Provider Physician Assistant
DX: Z12.31 Encounter for screening mammogram for malignant neoplasm of breast (principal)
CPT/HCPCS: 77063; 77067

== ENCOUNTER 2023-03-29 12:23 | Outpatient (CLI) | payer MEDICARE, SELFPAY ==
[2023-03-29 12:33] LABS: Hematocrit 42.6 % (37.0-47.0); Hemoglobin 13.5 g/dL (12.0-15.0); Mean Corpuscular HGB Conc 31.7 g/dl (32-36); Mean Platelet Volume 9.8 fl (7.4-10.4); Platelet Count Result 523 k/mm3 (150-375); Red Blood Count 5.39 M/mm3 (4.2-5.4); Red Cell Distribution Width 17.4 % (11.5-14.5); White Blood Count 6.4 K/mm3 (4.5-10.0)
== END 2023-03-29 12:24 | disposition home or self-care (01) ==
PROVIDERS: PCP Physician Assistant; Visit Provider Internal Medicine Hematology & Oncology
DX: D47.3 Essential (hemorrhagic) thrombocythemia (principal)
CPT/HCPCS: 36415; 85027

== ENCOUNTER 2023-04-01 00:40 | Day surgery (SDC) | payer MEDICARE, SELFPAY ==
[2023-03-17 10:42] VITALS: BMI 29.2
[2023-04-01 08:09] VITALS: BP 157/71; PULSE 63; RESP 18; TEMP 36.5; O2SAT 98; BMI 29.2
[2023-04-01] MEDS: LACTATED RINGERS 1,000 ML 150 ML IV CONT (08:20)
--- NOTE | 2023-04-01 08:41 | WPDANESEPPF ---
Anes - Initial Pre Proc Eval Procedure: Operation Date: 04/01/23 09:00 Proposed Procedures p Esophagogastroduodenoscopy & Screening Colonoscopy - Josh Marti MD Date/Time: 04/01/23 08:41 Surgeon: Josh Marti MD Pre Op Diagnosis: Soto's Esophagus, Neoplasm Screening Patient Data Age: 77 Gender: F Height: 1.63 m Weight: 77.3 kg Last Vital Signs Temp 97.7 F 04/01/23 08:09 Pulse 63 04/01/23 08:09 Resp 18 04/01/23 08:09 BP 157/71 H 04/01/23 08:09 Pulse Ox 98 04/01/23 08:09 O2 Del Method Room Air 04/01/23 08:09 Allergies Allergy/AdvReac Type Severity Reaction Status Date / Time No Known Drug Allergies Allergy none Verified 04/01/23 08:07 Home Medications Medication Instructions Recorded Confirmed Type carvedilol 25 mg tablet 25 mg PO BID 12/07/22 04/01/23 History meclizine 25 mg tablet 25 mg PO TID #20 tabs 12/07/22 04/01/23 Rx pantoprazole 40 mg tablet,delayed 40 mg PO DAILY 12/07/22 04/01/23 History release omega-3 fatty acids 1 cap PO DAILY 12/12/22 04/01/23 History aspirin 81 mg chewable tablet 81 mg PO DAILY@0800 #100 tabs 12/13/22 04/01/23 Rx (Children's Aspirin) rosuvastatin 20 mg tablet 20 mg PO DAILY #30 tabs 12/13/22 04/01/23 Rx allopurinol 300 mg tablet 300 mg PO DAILY 03/17/23 04/01/23 History amlodipine 2.5 mg PO DAILY 03/17/23 04/01/23 History Patient hx anesthesia problems: none Family hx anesthesia problems: none Results Review: All pre-operative results and documents have been reviewed as part of the pre-operative evaluation. [facility] Past Medical History Medical History Bundle branch block Cardiomyopathy CHF (congestive heart failure), NYHA class I Chronic GERD Hyperlipidemia Hypertension Mitral regurgitation Surgical History Surgical History H/O tubal ligation H/O: hysterectomy History of bladder surgery History of carpal tunnel release Family History Family History Mother Heart disease Social History Social History Social History: she lives alone in her home. She has2 kids and is . 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 Code status full code Smoking status: Never smoker Alcohol intake: never Substance use: never Lack of Transportation: No Lack of Food: Never True Current Housing: I Have Housing Concerned About Future Housing: No Difficulty Paying Gas/Electric Bills: No Difficulty Paying for Meds: No Currently Unemployed: No Education: High School Diploma/GED Difficulty w/ Childcare or Family Care: No Spiritual care concerns: No Anes - Eval Final PreProcedure Day of Procedure 04/01/23 08:41 Patient weight: normal Heart: regular rate and rhythm Lungs: clear to auscultation Airway: Mallampati scale class II Neurological: alert and oriented Last oral intake: >/= 8 hours ASA classification: III Emergent: no Anesthetic plan: proceed Anesthesia type and monitoring: general GIVS and standard monitoring Results Review: All pre-operative results and documents have been reviewed as part of the pre-operative evaluation. Informed Consent: The patient's anesthetic plan and its attendant risks and benefits were discussed with the patient/family/POA. Questions were solicited and answers provided to the satisfaction of the patient/family/POA.
--- NOTE | 2023-04-01 08:44 | PM.HPGS ---
History of Present Illness History of Present Illness Consent: Risks, benefits, and alternatives have been discussed and questions answered. Patient agrees to proceed with procedure. Chief complaint: Soto's Esophagus, Neoplasm Screening Narrative: Amaris Sparks is a 77 year old female Presents for both colonoscopy and EGD. Patient states she has a history of heartburn. 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 She states she is maintained on pantoprazole. Heartburn is well controlled with no recent episodes. She denies any dysphagia or bleeding. Her last EGD was approximately 10 years ago. Her last colonoscopy was 10 years ago as well. Patient presents today for neoplasia screening colonoscopy as well as EGD. Review of Systems Review of Systems: Review of systems noncontributory. [facility] Past Medical History Medical History Bundle branch block Cardiomyopathy CHF (congestive heart failure), NYHA class I Chronic GERD Hyperlipidemia Hypertension Mitral regurgitation Surgical History Surgical History H/O tubal ligation H/O: hysterectomy History of bladder surgery History of carpal tunnel release Family History Family History Mother Heart disease Social History Social History Social History: she lives alone in her home. She has2 kids and is . 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 Code status full code Smoking status: Never smoker Alcohol intake: never Substance use: never Lack of Transportation: No Lack of Food: Never True Current Housing: I Have Housing Concerned About Future Housing: No Difficulty Paying Gas/Electric Bills: No Difficulty Paying for Meds: No Currently Unemployed: No Education: High School Diploma/GED Difficulty w/ Childcare or Family Care: No Spiritual care concerns: No Meds Home Medications and Allergies Home Medications Medication Instructions Recorded Confirmed Type carvedilol 25 mg tablet 25 mg PO BID 12/07/22 04/01/23 History meclizine 25 mg tablet 25 mg PO TID #20 tabs 12/07/22 04/01/23 Rx pantoprazole 40 mg tablet,delayed 40 mg PO DAILY 12/07/22 04/01/23 History release omega-3 fatty acids 1 cap PO DAILY 12/12/22 04/01/23 History aspirin 81 mg chewable tablet 81 mg PO DAILY@0800 #100 tabs 12/13/22 04/01/23 Rx (Children's Aspirin) rosuvastatin 20 mg tablet 20 mg PO DAILY #30 tabs 12/13/22 04/01/23 Rx allopurinol 300 mg tablet 300 mg PO DAILY 03/17/23 04/01/23 History amlodipine 2.5 mg PO DAILY 03/17/23 04/01/23 History Allergies Allergy/AdvReac Type Severity Reaction Status Date / Time No Known Drug Allergies Allergy none Verified 04/01/23 08:07 Vital Signs Vital Signs - 24 hr 04/01/23 08:09 Temperature 97.7 F Pulse Rate 63 Respiratory Rate 18 Blood Pressure 157/71 H Pulse Oximetry 98 Oxygen Delivery Room Air Exam Narrative: Physical exam reveals patient to be alert. Vital signs stable. HEENT exam is unremarkable. Patient is anicteric. Lungs are clear to auscultation and percussion. Heart is without murmur or extra sounds. Abdomen bowel sounds are present soft nontender with no organomegaly. Digital external rectal exam is normal. Assessment and Plan Assessment and plan (1) Chronic GERD: Code(s): K21.9 - Gastro-esophageal reflux disease without esophagitis Status: Chronic Assessment and Plan: Patient with stable symptoms. Has not had heartburn for some time. She is maintained on pantoprazole 40mg p.o. daily. She gives a history of Soto's esophagus in the past. EGD is requested will be performed to confirm this diagnosis, also for screening. (2) Encounter for screening colonoscopy: Code(s): Z12.11 - Encounter for screening for malignant
--- NOTE | 2023-04-01 09:10 | SUR.OPER ---
EGD completed at 900, Colonoscopy started at 906
[2023-04-01 09:27] VITALS: BP 105/55; PULSE 56; RESP 14; O2SAT 97
[2023-04-01 09:37] VITALS: BP 113/75; PULSE 53; RESP 17; O2SAT 98
[2023-04-01 09:47] VITALS: BP 122/73; PULSE 60; RESP 18; O2SAT 96
== END 2023-04-01 10:00 | disposition home or self-care (01) ==
PROVIDERS: PCP Physician Assistant; Visit Provider Internal Medicine Gastroenterology
PROC: 0DJ08ZZ Inspection of Upper Intestinal Tract, Via Natural or Artificial Opening Endoscopic (ICD-10-PCS; CPT 43235; principal; 2023-04-01 09:00)
DX: Z12.11 Encounter for screening for malignant neoplasm of colon (principal); K57.30 Diverticulosis of large intestine without perforation or abscess without bleeding; K21.9 Gastro-esophageal reflux disease without esophagitis; K44.9 Diaphragmatic hernia without obstruction or gangrene; K22.710 Barrett's esophagus with low grade dysplasia; I11.0 Hypertensive heart disease with heart failure; I50.9 Heart failure, unspecified; I42.9 Cardiomyopathy, unspecified; I45.4 Nonspecific intraventricular block; E78.5 Hyperlipidemia, unspecified; I34.0 Nonrheumatic mitral (valve) insufficiency; Z79.82 Long term (current) use of aspirin
CPT/HCPCS: 43239; G0121; 88305; J2704; J7120

== ENCOUNTER 2023-04-25 10:42 | Outpatient (RCR) | payer MEDICARE, SELFPAY ==
--- NOTE | 2023-04-25 17:57 | WPDONCPN ---
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 She is tolerating Hydrea well without any significant side effects of fevers, oral or skin ulcers. She has mild fatigue. CBC done today showed platelet count decreasing appropriately to 491K today. WBC is 6.1K and Hemoglobin is 13.8g/dL. She will continue Hydrea at 500mg daily and will see Dr. Oliveira in 4 weeks with another CBC and CMP. (2) Iron deficiency anemia Code(s): D50.9 - Iron deficiency anemia, unspecified Status: Acute Assessment and plan: Likely secondary to Soto's esophagus. She is on PPI. Patient is on ferrous sulfate 325mg daily and tolerating well. She will continue oral iron and will check full iron panel with next visit. - Time Spent With Patient Total time spent is greater than 50% in coordination of care (as documented) at patient's floor/unit and/or counseling patient: Greater than 35 minutes Subjective Interval history: DIAGNOSIS: Essential Thrombocythemia JAK2 Mutation Positive CURRENT TREATMENT: Hydrea 50mg daily started 03/02/23. SUBJECTIVE: Patient is here in the office for follow up of ET. She is on Hydrea and tolerating it well. patient denies oral sores, skin lesions or any bleeding or bruising. She reports mild fatigue. Review of Systems - Review of Systems Patient reports that she has mild fatigue but able to maintain independent living. she denies fever, chills, night sweats. Denies oral sores or skin ulcers. Denies dizziness. syncope, TIA or CVA. Denies chest pain, dyspnea, cough or hemoptysis. Denies vision changes including blurry or double vision. Denies abdominal pain, nausea, vomiting or diarrhea. there is no hematochezia or melena. there is no focal neurological deficits. Exam - Constitutional no acute distress - Routine HEENT Exam Head: Present: atraumatic, normal inspection Eye: Present: EOMI, normal appearance ENT: Present: mucous membranes moist, nares patent - Routine Neck Exam Present: full ROM - Routine Respiratory Exam Present: CTAB - Routine Cardiovascular Exam Cardiovascular: Present: RRR, S1, S2 - Routine Abdominal Exam Present: normal bowel sounds - Routine Skin Exam Present: intact - Routine Neurological Exam Present: alert, oriented X3, CN II-XII intact - Routine Psychiatric Exam Present: normal affect, normal thought process PN: Objective Data - Labs CBC & Chem 7: 04/25/23 10:52 04/25/23 10:52 Labs: Laboratory Results - last 24 hr 04/25/23 10:52 WBC 6.1 RBC 5.20 Hgb 13.8 Hct 43.5 MCV 83.7 MCH 26.5 MCHC 31.7 L RDW 22.8 H Plt Count 491 H MPV 10.3 Immature Gran % (Auto) 0.3 Neut % (Auto) 58.2 Lymph % (Auto) 25.8 [facility] % (Auto) 9.5 H Eos % (Auto) 4.4 Baso % (Auto) 1.8 H Lymph # (Auto) 1.57 [facility] # (Auto) 0.6 Eos # (Auto) 0.3 Baso # (Auto) 0.1 Abs Immat Gran (auto) 0.02 Absolute Neuts (auto) 3.5 Absolute Nucleated RBC 0.0 Nucleated RBC % 0.0 Sodium 140 Potassium 4.2 Chloride 105 Carbon Dioxide 28 Anion Gap 7 L BUN 22 H Creatinine 0.80 Estim Creat Clear Calc Not Reportable Estimated GFR > 60 Glucose 101 Calcium 9.4
== END 2023-05-02 10:11 ==
LOC: AMCINF 10:42
PROVIDERS: PCP Physician Assistant; Visit Provider Internal Medicine
DX: D47.3 Essential (hemorrhagic) thrombocythemia (principal)
CPT/HCPCS: 36415; 80048; 85025

== ENCOUNTER 2023-04-25 10:46 | Outpatient (CLI) | payer MEDICARE, SELFPAY ==
[2023-04-25 11:04] LABS: Basophils Absolute Auto 0.1 K/mm3 (0.0-0.1); Basophils Percent Auto 1.8 % (0.2-1.2); Eosinophils Absolute Auto 0.3 K/mm3 (0-0.3); Eosinophils Percent Auto 4.4 % (0-4.4); Hematocrit 43.5 % (37.0-47.0); Hemoglobin 13.8 g/dL (12.0-15.0); Immature Granulocyte Absolute 0.02 K/mm3 (0.00-0.031); Immature Granulocyte Percent A 0.3 % (0-0.5); Lymphocytes Absolute Auto 1.57 K/mm3 (0.9-3.2); Lymphocytes Percent Auto 25.8 % (18.3-44.2); Mean Corpuscular HGB Conc 31.7 g/dl (32-36); Mean Corpuscular Hemoglobin 26.5 pg (26-34); Mean Corpuscular Volume 83.7 fl (80-100); Mean Platelet Volume 10.3 fl (7.4-10.4); Monocytes Absolute Auto 0.6 K/mm3 (0.1-0.6); Monocytes Percent Auto 9.5 % (2.6-8.5); Neutrophils Absolute Auto 3.5 K/mm3 (1.3-6.7); Neutrophils Percent Auto 58.2 % (45.5-73.1); Platelet Count Result 491 k/mm3 (150-375); Red Cell Distribution Width 22.8 % (11.5-14.5); White Blood Count 6.1 K/mm3 (4.5-10.0)
[2023-04-25 11:12] LABS: Anion Gap 7 mmol/L (8-16); Blood Urea Nitrogen 22 mg/dL (7-17); Calcium 9.4 mg/dL (8.4-10.2); Carbon Dioxide 28 mmol/L (22-30); Chloride 105 mmol/L (98-107); Estimated Glomerular Filt Rate > 60; Glucose 101 mg/dL (65-110); Potassium 4.2 mmol/L (3.4-5.0); Sodium 140 mmol/L (137-145)
== END 2023-04-25 10:47 | disposition home or self-care (01) ==
LOC: ANHLAB 05-19 08:34
PROVIDERS: PCP Physician Assistant; Visit Provider Internal Medicine
DX: D47.3 Essential (hemorrhagic) thrombocythemia (principal)
CPT/HCPCS: 36415; 80048; 85025

== ENCOUNTER 2023-05-26 11:21 | Outpatient (CLI) | payer MEDICARE, SELFPAY ==
[2023-05-26 11:54] LABS: Hemoglobin 13.6 g/dL (12.0-15.0); Mean Corpuscular HGB Conc 33.2 g/dl (32-36); Mean Corpuscular Hemoglobin 28.2 pg (26-34); Mean Corpuscular Volume 84.9 fl (80-100); Mean Platelet Volume 9.8 fl (7.4-10.4); Platelet Count Result 491 k/mm3 (150-375); Red Blood Count 4.83 M/mm3 (4.2-5.4); Red Cell Distribution Width 24.9 % (11.5-14.5)
[2023-05-26 12:26] LABS: Iron 87 ug/dL (37-170)
[2023-05-26 12:30] LABS: Alanine Aminotransferase 28 U/L (6-35); Albumin Level 4.4 g/dL (3.5-5.1); Alkaline Phosphatase 67 U/L (38-126); Anion Gap 7 mmol/L (8-16); Aspartate Amino Transferase 38 U/L (14-36); Bilirubin,Total 0.6 mg/dL (0.2-1.3); Blood Urea Nitrogen 24 mg/dL (7-17); Calcium 9.1 mg/dL (8.4-10.2); Carbon Dioxide 27 mmol/L (22-30); Chloride 104 mmol/L (98-107); Estimated Glomerular Filt Rate 54; Glucose 97 mg/dL (65-110); Potassium 4.3 mmol/L (3.4-5.0); Sodium 138 mmol/L (137-145)
[2023-05-26 12:37] LABS: Percent Iron Saturation 23 % (20-50)
== END 2023-05-26 11:22 | disposition home or self-care (01) ==
LOC: ANHLAB 11:24
PROVIDERS: PCP Physician Assistant; Visit Provider Internal Medicine Hematology & Oncology
DX: D47.3 Essential (hemorrhagic) thrombocythemia (principal)
CPT/HCPCS: 36415; 80053; 82728; 83540; 83550; 85027

== ENCOUNTER 2023-08-03 09:33 | Outpatient (CLI) | payer MEDICARE, SELFPAY ==
[2023-08-03 09:47] LABS: Basophils Absolute Auto 0.1 K/mm3 (0.0-0.1); Basophils Percent Auto 1.6 % (0.2-1.2); Eosinophils Absolute Auto 0.3 K/mm3 (0-0.3); Eosinophils Percent Auto 4.2 % (0-4.4); Hematocrit 39.7 % (37.0-47.0); Hemoglobin 13.1 g/dL (12.0-15.0); Immature Granulocyte Absolute 0.02 K/mm3 (0.00-0.031); Immature Granulocyte Percent A 0.3 % (0-0.5); Lymphocytes Absolute Auto 1.48 K/mm3 (0.9-3.2); Lymphocytes Percent Auto 23.9 % (18.3-44.2); Mean Corpuscular Hemoglobin 32.8 pg (26-34); Mean Corpuscular Volume 99.3 fl (80-100); Mean Platelet Volume 10.3 fl (7.4-10.4); Monocytes Absolute Auto 0.5 K/mm3 (0.1-0.6); Monocytes Percent Auto 8.4 % (2.6-8.5); Neutrophils Absolute Auto 3.8 K/mm3 (1.3-6.7); Neutrophils Percent Auto 61.6 % (45.5-73.1); Platelet Count Result 437 k/mm3 (150-375); Red Cell Distribution Width 17.8 % (11.5-14.5); White Blood Count 6.2 K/mm3 (4.5-10.0)
[2023-08-03 09:53] LABS: Blood Urea Nitrogen 21 mg/dL (8-26); Carbon Dioxide 26 mmol/L (22-30); Chloride 104 mmol/L (98-109); Estimated Glomerular Filt Rate 37; Glucose 97 mg/dL (70-105); Ionized Calcium (POC) 1.26 mmol/L (1.11-1.31); Potassium 4.4 mmol/L (3.5-4.9); Sodium 142 mmol/L (138-146)
== END 2023-08-03 09:34 | disposition home or self-care (01) ==
LOC: ANHLAB 09:36
PROVIDERS: PCP Physician Assistant; Visit Provider Internal Medicine Hematology & Oncology
DX: D47.3 Essential (hemorrhagic) thrombocythemia (principal)
CPT/HCPCS: 36415; 80047; 85025

== ENCOUNTER 2023-09-02 02:12 | Day surgery (SDC) | payer MEDICARE, SELFPAY ==
[2023-08-17 14:06] VITALS: BMI 29.1
--- NOTE | 2023-08-31 09:50 | SUR.PREOP ---
Patient called regarding upcoming procedure. Reviewed preop instructions, appointment times, and procedure prep.
[2023-09-02 08:23] VITALS: BP 150/68; PULSE 62; RESP 16; TEMP 36.2; O2SAT 98
[2023-09-02] MEDS: LACTATED RINGERS 1,000 ML 150 ML IV CONT (08:31)
--- NOTE | 2023-09-02 08:45 | WPDANESEPPF ---
Anes - Initial Pre Proc Eval Procedure: Operation Date: 09/02/23 09:30 Proposed Procedures p Esophagogastroduodenoscopy EGD - Josh Marti MD Date/Time: 09/02/23 08:45 Surgeon: Josh Marti MD Pre Op Diagnosis: Soto's Esophagus and low grade dysplasia Patient Data Age: 78 Gender: F Height: 1.63 m Weight: 76.7 kg Last Vital Signs Temp 97.1 F L 09/02/23 08:23 Pulse 62 09/02/23 08:23 Resp 16 09/02/23 08:23 BP 150/68 H 09/02/23 08:23 Pulse Ox 98 09/02/23 08:23 O2 Del Method Room Air 09/02/23 08:23 Allergies Allergy/AdvReac Type Severity Reaction Status Date / Time bee venom protein (honey bee) Allergy Swelling Verified 09/02/23 08:21 latex Allergy Rash Verified 09/02/23 08:21 Home Medications Medication Instructions Recorded Confirmed Type carvedilol 25 mg tablet 25 mg PO BID 12/07/22 09/02/23 History pantoprazole 40 mg tablet,delayed 40 mg PO DAILY 12/07/22 08/17/23 History release omega-3 fatty acids 1 cap PO DAILY 12/12/22 08/17/23 History aspirin 81 mg chewable tablet 81 mg PO DAILY@0800 #100 tabs 12/13/22 08/17/23 Rx (Children's Aspirin) allopurinol 300 mg tablet 300 mg PO DAILY 03/17/23 08/17/23 History amlodipine 2.5 mg PO DAILY 03/17/23 08/17/23 History ferrous sulfate 325 mg (65 mg 325 mg PO DAILY 08/17/23 08/17/23 History iron) tablet hydroxyurea 500 mg capsule 500 mg PO DAILY 08/17/23 08/17/23 History rosuvastatin 20 mg tablet 5 mg PO DAILY 08/17/23 08/17/23 History Patient hx anesthesia problems: none Family hx anesthesia problems: none Results Review: All pre-operative results and documents have been reviewed as part of the pre-operative evaluation. [facility] Past Medical History Medical History Bundle branch block Cardiomyopathy CHF (congestive heart failure), NYHA class I Chronic GERD Hyperlipidemia Hypertension Mitral regurgitation Surgical History Surgical History H/O tubal ligation H/O: hysterectomy History of bladder surgery History of carpal tunnel release Family History Family History Mother Heart disease Social History Social History Social History: she lives alone in her home. She has2 kids and is . 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 Code status full code Smoking status: Never smoker Alcohol intake: never Substance use: never Substance use type: does not use Lack of Transportation: No Lack of Food: Never True Current Housing: I Have Housing Concerned About Future Housing: No Difficulty Paying Gas/Electric Bills: No Difficulty Paying for Meds: No Currently Unemployed: No Education: High School Diploma/GED Difficulty w/ Childcare or Family Care: No Living arrangements: alone Spiritual care concerns: No Anes - Eval Final PreProcedure Day of Procedure 09/02/23 08:45 Patient weight: obese Heart: regular rate and rhythm Lungs: clear to auscultation Airway: Mallampati scale class II Neurological: alert and oriented Last oral intake: >/= 8 hours ASA classification: III Emergent: no Anesthetic plan: proceed Anesthesia type and monitoring: general GIVS and standard monitoring Results Review: All pre-operative results and documents have been reviewed as part of the pre-operative evaluation. Informed Consent: The patient's anesthetic plan and its attendant risks and benefits were discussed with the patient/family/POA. Questions were solicited and answers provided to the satisfaction of the patient/family/POA.
--- NOTE | 2023-09-02 08:59 | PM.HPGS ---
History of Present Illness History of Present Illness Consent: Risks, benefits, and alternatives have been discussed and questions answered. Patient agrees to proceed with procedure. Chief complaint: Soto's Esophagus and low grade dysplasia Narrative: Amaris Sparks is a 78 year old female Presents for follow-up EGD. Patient has a history of GE reflux. Recent EGD biopsies suggested Soto's esophagus with low-grade dysplasia. Patient takes pantoprazole 40mg p.o. daily. She denies any heartburn. She denies any dysphagia. Her weight has remained stable. Patient presents today for follow-up EGD to document the status of the dysplasia in her Soto's esophagus. Review of Systems Review of Systems: Review of systems noncontributory. [facility] Past Medical History Medical History Bundle branch block Cardiomyopathy CHF (congestive heart failure), NYHA class I Chronic GERD Hyperlipidemia Hypertension Mitral regurgitation Surgical History Surgical History H/O tubal ligation H/O: hysterectomy History of bladder surgery History of carpal tunnel release Family History Family History Mother Heart disease Social History Social History Social History: she lives alone in her home. She has2 kids and is . 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 Code status full code Smoking status: Never smoker Alcohol intake: never Substance use: never Substance use type: does not use Lack of Transportation: No Lack of Food: Never True Current Housing: I Have Housing Concerned About Future Housing: No Difficulty Paying Gas/Electric Bills: No Difficulty Paying for Meds: No Currently Unemployed: No Education: High School Diploma/GED Difficulty w/ Childcare or Family Care: No Living arrangements: alone Spiritual care concerns: No Meds Home Medications and Allergies Home Medications Medication Instructions Recorded Confirmed Type carvedilol 25 mg tablet 25 mg PO BID 12/07/22 09/02/23 History pantoprazole 40 mg tablet,delayed 40 mg PO DAILY 12/07/22 08/17/23 History release omega-3 fatty acids 1 cap PO DAILY 12/12/22 08/17/23 History aspirin 81 mg chewable tablet 81 mg PO DAILY@0800 #100 tabs 12/13/22 08/17/23 Rx (Children's Aspirin) allopurinol 300 mg tablet 300 mg PO DAILY 03/17/23 08/17/23 History amlodipine 2.5 mg PO DAILY 03/17/23 08/17/23 History ferrous sulfate 325 mg (65 mg 325 mg PO DAILY 08/17/23 08/17/23 History iron) tablet hydroxyurea 500 mg capsule 500 mg PO DAILY 08/17/23 08/17/23 History rosuvastatin 20 mg tablet 5 mg PO DAILY 08/17/23 08/17/23 History Allergies Allergy/AdvReac Type Severity Reaction Status Date / Time bee venom protein (honey bee) Allergy Swelling Verified 09/02/23 08:21 latex Allergy Rash Verified 09/02/23 08:21 Vital Signs Vital Signs - 24 hr 09/02/23 08:23 Temperature 97.1 F L Pulse Rate 62 Respiratory Rate 16 Blood Pressure 150/68 H Pulse Oximetry 98 Oxygen Delivery Room Air Exam Narrative: Physical exam reveals patient to be alert. Vital signs stable. HEENT exam is unremarkable. Patient is anicteric. Lungs are clear to auscultation and percussion. Heart is without murmur or extra sounds. Abdomen bowel sounds are present soft nontender with no organomegaly. Digital external rectal exam is normal. Assessment and Plan Assessment and plan (1) Soto's esophagus: Code(s): K22.70 - Soto's esophagus without dysplasia Status: Acute Assessment and Plan: Patient found to have Soto's esophagus by recent EGD and biopsy. Low-grade dysplasia evident on histology. Plan for surveillance EGD at this time. Further recommendations will be given after endoscopy. Patient should re
[2023-09-02 09:22] VITALS: BP 102/52; PULSE 55; RESP 17; O2SAT 97
[2023-09-02 09:32] VITALS: BP 97/50; PULSE 55; RESP 19; O2SAT 95
[2023-09-02 09:42] VITALS: BP 111/51; PULSE 53; RESP 18; O2SAT 97
== END 2023-09-02 09:47 | disposition home or self-care (01) ==
PROVIDERS: PCP Physician Assistant; Visit Provider Internal Medicine Gastroenterology
PROC: 0DJ08ZZ Inspection of Upper Intestinal Tract, Via Natural or Artificial Opening Endoscopic (ICD-10-PCS; CPT 43235; principal; 2023-09-02 09:30)
DX: K21.00 Gastro-esophageal reflux disease with esophagitis, without bleeding (principal); K44.9 Diaphragmatic hernia without obstruction or gangrene; I11.0 Hypertensive heart disease with heart failure; I50.9 Heart failure, unspecified; E78.5 Hyperlipidemia, unspecified; I42.9 Cardiomyopathy, unspecified; E66.9 Obesity, unspecified; Z68.29 Body mass index [BMI] 29.0-29.9, adult; Z79.82 Long term (current) use of aspirin; Z86.79 Personal history of other diseases of the circulatory system; Z82.49 Family history of ischemic heart disease and other diseases of the circulatory system
CPT/HCPCS: 43239; 88305; J2704; J7120

== ENCOUNTER 2023-10-10 13:38 | Outpatient (CLI) | payer MEDICARE, SELFPAY ==
[2023-10-10 13:56] LABS: Basophils Absolute Auto 0.1 K/mm3 (0.0-0.1); Basophils Percent Auto 1.1 % (0.2-1.2); Eosinophils Absolute Auto 0.3 K/mm3 (0-0.3); Eosinophils Percent Auto 3.6 % (0-4.4); Hematocrit 40.2 % (37.0-47.0); Hemoglobin 13.4 g/dL (12.0-15.0); Immature Granulocyte Absolute 0.03 K/mm3 (0.00-0.031); Immature Granulocyte Percent A 0.3 % (0-0.5); Lymphocytes Absolute Auto 1.73 K/mm3 (0.9-3.2); Lymphocytes Percent Auto 19.8 % (18.3-44.2); Mean Corpuscular HGB Conc 33.3 g/dl (32-36); Mean Corpuscular Hemoglobin 34.6 pg (26-34); Mean Corpuscular Volume 103.9 fl (80-100); Mean Platelet Volume 10.5 fl (7.4-10.4); Monocytes Absolute Auto 0.7 K/mm3 (0.1-0.6); Monocytes Percent Auto 7.8 % (2.6-8.5); Neutrophils Absolute Auto 5.9 K/mm3 (1.3-6.7); Neutrophils Percent Auto 67.4 % (45.5-73.1); Platelet Count Result 508 k/mm3 (150-375); Red Blood Count 3.87 M/mm3 (4.2-5.4); Red Cell Distribution Width 13.5 % (11.5-14.5); White Blood Count 8.7 K/mm3 (4.5-10.0)
[2023-10-10 13:59] LABS: Blood Urea Nitrogen 22 mg/dL (8-26); Carbon Dioxide 26 mmol/L (22-30); Chloride 103 mmol/L (98-109); Estimated Glomerular Filt Rate 40; Glucose 96 mg/dL (70-105); Ionized Calcium (POC) 1.19 mmol/L (1.11-1.31); Potassium 4.3 mmol/L (3.5-4.9); Sodium 141 mmol/L (138-146)
== END 2023-10-10 13:39 | disposition home or self-care (01) ==
LOC: ANHLAB 13:41
PROVIDERS: PCP Physician Assistant; Visit Provider Internal Medicine Hematology & Oncology
DX: D47.3 Essential (hemorrhagic) thrombocythemia (principal)
CPT/HCPCS: 36415; 80047; 85025

== ENCOUNTER 2023-12-14 09:40 | Outpatient (CLI) | payer MEDICARE, SELFPAY ==
[2023-12-14 09:52] LABS: Hemoglobin 13.8 g/dL (12.0-15.0); Mean Corpuscular HGB Conc 32.9 g/dl (32-36); Mean Corpuscular Hemoglobin 33.7 pg (26-34); Mean Corpuscular Volume 102.7 fl (80-100); Mean Platelet Volume 10.4 fl (7.4-10.4); Platelet Count Result 476 k/mm3 (150-375); Red Blood Count 4.09 M/mm3 (4.2-5.4); Red Cell Distribution Width 13.3 % (11.5-14.5); White Blood Count 5.9 K/mm3 (4.5-10.0)
[2023-12-14 09:56] LABS: Blood Urea Nitrogen 20 mg/dL (8-26); Carbon Dioxide 29 mmol/L (22-30); Chloride 103 mmol/L (98-109); Estimated Glomerular Filt Rate 54; Glucose 100 mg/dL (70-105); Ionized Calcium (POC) 1.25 mmol/L (1.11-1.31); Potassium 4.5 mmol/L (3.5-4.9); Sodium 140 mmol/L (138-146)
== END 2023-12-14 09:41 | disposition home or self-care (01) ==
LOC: ANHLAB 09:42
PROVIDERS: PCP Physician Assistant; Visit Provider Internal Medicine Hematology & Oncology
DX: D47.3 Essential (hemorrhagic) thrombocythemia (principal)
CPT/HCPCS: 36415; 80047; 85027

== ENCOUNTER 2024-03-14 10:45 | Outpatient (CLI) | payer MEDICARE, SELFPAY ==
[2024-03-14 11:18] LABS: Basophils Absolute Auto 0.1 K/mm3 (0.0-0.1); Basophils Percent Auto 1.5 % (0.2-1.2); Eosinophils Absolute Auto 0.2 K/mm3 (0-0.3); Eosinophils Percent Auto 3.3 % (0-4.4); Hematocrit 39.7 % (37.0-47.0); Immature Granulocyte Absolute 0.02 K/mm3 (0.00-0.031); Immature Granulocyte Percent A 0.3 % (0-0.5); Lymphocytes Absolute Auto 1.84 K/mm3 (0.9-3.2); Lymphocytes Percent Auto 25.6 % (18.3-44.2); Mean Corpuscular HGB Conc 32.7 g/dl (32-36); Mean Corpuscular Hemoglobin 33.3 pg (26-34); Mean Corpuscular Volume 101.8 fl (80-100); Mean Platelet Volume 10.3 fl (7.4-10.4); Monocytes Absolute Auto 0.5 K/mm3 (0.1-0.6); Neutrophils Absolute Auto 4.5 K/mm3 (1.3-6.7); Neutrophils Percent Auto 62.3 % (45.5-73.1); Platelet Count Result 549 k/mm3 (150-375); Red Cell Distribution Width 13.7 % (11.5-14.5); White Blood Count 7.2 K/mm3 (4.5-10.0)
[2024-03-14 11:23] LABS: Blood Urea Nitrogen 22 mg/dL (8-26); Carbon Dioxide 26 mmol/L (22-30); Chloride 104 mmol/L (98-109); Estimated Glomerular Filt Rate 54; Glucose 118 mg/dL (70-105); Ionized Calcium (POC) 1.23 mmol/L (1.11-1.31); Potassium 4.2 mmol/L (3.5-4.9); Sodium 140 mmol/L (138-146)
== END 2024-03-14 10:46 | disposition home or self-care (01) ==
LOC: ANHLAB 10:50
PROVIDERS: PCP Physician Assistant; Visit Provider Internal Medicine Hematology & Oncology
DX: D47.3 Essential (hemorrhagic) thrombocythemia (principal)
CPT/HCPCS: 36415; 80047; 85025

== ENCOUNTER 2024-05-15 13:20 | Outpatient (CLI) | payer MEDICARE, SELFPAY ==
--- NOTE | ~2024-05-15 | MM_ITS ---
EXAMINATION: MM screening kat BI w mary HISTORY: Screening TECHNIQUE: Craniocaudal and mediolateral oblique 3-D tomosynthesis images were obtained and synthetic 2-D images were generated. CAD analysis was submitted and interpreted. COMPARISON: Comparison to multiple prior studies sequentially, with oldest reviewed study dated 01/2019. BREAST PARENCHYMAL COMPOSITION: Not dense: There are scattered areas of fibroglandular density. FINDINGS: There is no evidence of suspicious mass, calcification, or architectural distortion to sugg est malignancy in either breast. There has been no suspicious interval change. IMPRESSION: 1. No mammographic evidence of malignancy. 2. Recommend routine screening mammography in one year. BI-RADS Category 1: Negative Reviewed, dictated and finalized at location B.
== END 2024-05-15 13:21 | disposition home or self-care (01) ==
LOC: ANHIMG 13:21
PROVIDERS: PCP Physician Assistant; Visit Provider Physician Assistant
DX: Z12.31 Encounter for screening mammogram for malignant neoplasm of breast (principal)
CPT/HCPCS: 77063; 77067

== ENCOUNTER 2024-07-11 11:23 | Outpatient (CLI) | payer MEDICARE, SELFPAY ==
[2024-07-11 11:39] LABS: Basophils Absolute Auto 0.1 K/mm3 (0.0-0.1); Basophils Percent Auto 0.9 % (0.2-1.2); Eosinophils Absolute Auto 0.3 K/mm3 (0-0.3); Eosinophils Percent Auto 4.8 % (0-4.4); Hematocrit 39.4 % (37.0-47.0); Immature Granulocyte Absolute 0.02 K/mm3 (0.00-0.031); Immature Granulocyte Percent A 0.3 % (0-0.5); Lymphocytes Absolute Auto 1.56 K/mm3 (0.9-3.2); Lymphocytes Percent Auto 22.9 % (18.3-44.2); Mean Corpuscular Hemoglobin 33.5 pg (26-34); Mean Corpuscular Volume 101.5 fl (80-100); Mean Platelet Volume 10.4 fl (7.4-10.4); Monocytes Absolute Auto 0.5 K/mm3 (0.1-0.6); Monocytes Percent Auto 7.6 % (2.6-8.5); Neutrophils Absolute Auto 4.3 K/mm3 (1.3-6.7); Neutrophils Percent Auto 63.5 % (45.5-73.1); Platelet Count Result 503 k/mm3 (150-375); Red Blood Count 3.88 M/mm3 (4.2-5.4); Red Cell Distribution Width 14.3 % (11.5-14.5); White Blood Count 6.8 K/mm3 (4.5-10.0)
[2024-07-11 11:43] LABS: Blood Urea Nitrogen 21 mg/dL (8-26); Carbon Dioxide 28 mmol/L (22-30); Chloride 103 mmol/L (98-109); Estimated Glomerular Filt Rate > 60; Glucose 102 mg/dL (70-105); Ionized Calcium (POC) 1.15 mmol/L (1.11-1.31); Potassium 4.1 mmol/L (3.5-4.9); Sodium 141 mmol/L (138-146)
== END 2024-07-11 11:24 | disposition home or self-care (01) ==
LOC: ANHLAB 11:26
PROVIDERS: PCP Physician Assistant; Visit Provider Internal Medicine Hematology & Oncology
DX: D47.3 Essential (hemorrhagic) thrombocythemia (principal)
CPT/HCPCS: 36415; 80047; 85025

== ENCOUNTER 2024-12-11 13:34 | Outpatient (CLI) | payer MEDICARE, SELFPAY ==
[2024-12-11 13:47] LABS: Basophils Absolute Auto 0.1 K/mm3 (0.0-0.1); Basophils Percent Auto 1.6 % (0.2-1.2); Eosinophils Absolute Auto 0.4 K/mm3 (0-0.3); Eosinophils Percent Auto 4.7 % (0-4.4); Hematocrit 42.5 % (37.0-47.0); Immature Granulocyte Absolute 0.02 K/mm3 (0.00-0.031); Immature Granulocyte Percent A 0.3 % (0-0.5); Lymphocytes Absolute Auto 1.66 K/mm3 (0.9-3.2); Lymphocytes Percent Auto 21.6 % (18.3-44.2); Mean Corpuscular HGB Conc 32.9 g/dl (32-36); Mean Corpuscular Hemoglobin 32.9 pg (26-34); Mean Corpuscular Volume 99.8 fl (80-100); Mean Platelet Volume 10.2 fl (7.4-10.4); Monocytes Absolute Auto 0.6 K/mm3 (0.1-0.6); Monocytes Percent Auto 8.1 % (2.6-8.5); Neutrophils Absolute Auto 4.9 K/mm3 (1.3-6.7); Neutrophils Percent Auto 63.7 % (45.5-73.1); Platelet Count Result 623 k/mm3 (150-375); Red Blood Count 4.26 M/mm3 (4.2-5.4); Red Cell Distribution Width 13.8 % (11.5-14.5); White Blood Count 7.7 K/mm3 (4.5-10.0)
[2024-12-11 13:50] LABS: Blood Urea Nitrogen 18 mg/dL (8-26); Carbon Dioxide 26 mmol/L (22-30); Chloride 106 mmol/L (98-109); Estimated Glomerular Filt Rate 54; Glucose 100 mg/dL (70-105); Ionized Calcium (POC) 1.18 mmol/L (1.11-1.31); Potassium 4.4 mmol/L (3.5-4.9); Sodium 140 mmol/L (138-146)
--- OUTSIDE RECORDS SUMMARY | 2024-12-11 15:07 | XMS_ITS | Data Portability ---
Author Organization [facility] Raji [facility] Address [address] [place] [address] Assessment Encounter Date Assessment Date Assessment LastModified by Organization Details LastModified Time 01/18/2024 01/18/2024 mammogram is due. colonoscopy is UTD March, all clear. eye and dental exams are UTD Not available 01/18/2024 11:30:18 07/18/2024 07/18/2024 mammogram is UTD colonoscopy is UTD March, all clear. eye appt in jun UTD Sure[facility]; and dental exams are UTD Dr. Reyna labs UTD Not available 07/18/2024 11:26:44 Plan of Treatment Reminders Order Date Submit Date Provider Last Modified By Organization Details Last Modified Time Details Appointments ANY 15 2024 09:30A M BROOKLYN Torrez Not available Not available Not available Lab BMP, serum or plasma 2023 024 [employer] [facility], [address], [place], [address], 08/13/2024 16:38:17 hepatic function panel, serum 2023 024 [employer] [facility], [address], [place], [address], 08/13/2024 16:38:11 TSH + free T4, serum 2023 024 [employer] [facility], [address], [place], [address], 08/13/2024 16:37:59 lipid panel, serum 2023 024 [employer] [facility], [address], [place], [address], 08/13/2024 16:39:23 BMP, serum or plasma 2023 024 [place] [id number] [employer] [facility], [address], [place], [address], 02/15/2024 15:12:01 hepatic function panel, serum 2023 024 [place] [id number] [employer] [facility], [address], [place], [address], 02/15/2024 15:12:02 TSH + free T4, serum 2023 024 [employer] [facility], [address], [place], [address], 02/02/2024 09:40:35 lipid panel, serum 2023 024 [employer] [facility], [address], [place], [address], 02/02/2024 09:40:35 Referral None recorded. Procedures None recorded. Surgeries None recorded. Imaging MAMMO, screening , digital, bilateral 2023 024 [facility] (Mammography) , [address], [place], [address], 05/15/2024 15:03:52 Medication Orders Zithromax Z-Gamaliel 250 mg tablet 2023 024 [facility], [address], [place], [address], 07/18/2024 11:34:48 pantopraz ole 40 mg tablet,de layed release 2023 024 [facility], [address], [place], [place], [phone], 01/18/2024 11:31:18 amlodipin e 2.5 mg tablet 2023 024 [facility], [address], [place], [place], [phone], 01/18/2024 11:31:19 rosuvasta tin 5 mg tablet 2023 024 [facility], [address], [place], [place], [phone], 01/18/2024 11:31:18 Patient TargetsNo targets recorded. Patient Instructions Encounter Date Encounter Id Patient Instructions Last Modified By Organization Details Last Modified Time 07/18/2024 [id number] A healthy lifestyle: care instructions [email or web address] Not available 07/18/2024 11:34:42 Reason for Referral None Reported. Results Created Date Observation Date Name Description Value Unit Range Abnormal Flag Note LastModifiedBy Organization Detail LastModifiedTime 05/15/20 24 05/15/2024 shakira GUTIERREZ, harlan al, pilar bermudez No observ ation record ed. [email or web address] [facility] [address], [place], [address], 07/18/2024 11:36:10 Result Notes None recorded. Problems Name Problem SNOMED Code Status Onset Date Resolution Date Notes Provider Name and Address Organization Details Recorded Time Benign essential hypertension 7341724 Active 2023 BROOKLYN Torrez Attn: Anayeli calles,[address], [place], [address], [facility] - [facility] 4 19:10:28 Hyperlipidemia 54589539 Active 2023 BROOKLYN Torrez Attn: Anayeli calles,[address], [place], [address], [facility] - [facility] 4 19:11:09 Gastroesophage al reflux disease without esophagitis 067317528 Active 2023 BROOKLYN Torrez Attn: Accountaileen calles,[address] [facility], [place], [address], [place] - [facility] 4 19:11:11 Thrombocytosis 7245067 Active 2023 BROOKLYN Torrez Attn: Accountaileen calles,[address], [place], [address], [place] - [facility] 4 19:11:12 Long-term drug therapy Active 2023 BROOKLYN Torrez Attn: Accountaileen g,[address], [place], [address], [place] - [facility] 4 19:11:14 Body mass index 25-29 - overweight 464683081 Active 2023 BROOKLYN Torrez Attn: Accountaileen g,[address], [place], [address], [place] - [facility] 4 11:34:34 Overweight 560412478 Active 2023 BROOKLYN Torrez Attn: Anayeli calles,[address], [place], [address], [place] - [facility] 4 11:34:35 Problem Notes None recorded. Procedures Surgical History Date Name Laterality Status Provider Name and Address Organization Details Recorded Time ligation of bilateral fallopian tubes completed Eileen Choi [place] - [facility] 01/18/2024 11:39:07 hysterectomy completed JORGE ALBERTO [place] - [facility] 01/18/2024 11:39:40 Imaging Results Imaging Date Name Status LastModified by Organiz ation Details LastModified Time 05/15/2024 MAMMO, screening, digital, bilateral completed [email or web address] [place] [address] [address] [facility] [address], [place], [address], 07/18/2024 11:36:10 Procedure Notes None recorded. Medical Equipment None Reported. Allergies Allergen ID Allergen Name Allergen Category Reaction Reaction Severity Criticality Documentation Date Start Date Code Code System Note Provider Name and Address Organization Details Recorded Time 758879 latex environme nt,medica tion rash Not available Not available 01/18/2024 11036 91 RxNorm Not Available Not Available Not Available Medications Name Sig Start Date Stop Date Status Note LastModified by Organization Details LastModified Time losartan 50 mg tablet TAKE 1 TABLET BY MOUTH DAILY 01/17 completed Not Available Not Available Not Available hydroxyurea 500 mg capsule TAKE ONE CAPSULE BY MOUTH DAILY active Not Available Not Available No t Available carvedilol 25 mg tablet TAKE 1 TABLET BY MOUTH EVERY 12 HOURS WITH SNACK OR FOOD active Not Available Not Available No t Available azithromyci n 250 mg tablet TAKE 2 TABLETS BY MOUTH ON DAY 1, AND THEN TAKE 1 TABLET BY MOUTH ONCE A DAY ON DAY 2 THROUGH DAY 5 active Not Available Not Available No t Available amlodipine 2.5 mg tablet TAKE 1 TABLET BY MOUTH EVERY DAY active Not Available Not Available No t Available ciprofloxac in 500 mg tablet TAKE 1 TABLET BY MOUTH EVERY 12 HOURS 07/18 completed Not Available Not Available Not Available peg-electro lyte solution 420 gram oral solution TAKE DIRECTED 07/18 completed Not Available Not Available Not Available meclizine 25 mg tablet TAKE 1 TABLET BY MOUTH THREE TIMES DAILY 01/17 completed Not Available Not Available Not Available pantoprazol e 40 mg tablet,paulie yed release TAKE 1 TABLET BY MOUTH EVERY DAY active Not Available Not Available No t Available allopurinol 300 mg tablet TAKE 1 TABLET BY MOUTH DAILY. GENERIC EQUIVALEN T FOR ZYLOPRIM. active Not Available Not Available No t Available losartan 100 mg tablet TAKE 1 TABLET BY MOUTH ONCE DAILY 01/17 completed Not Available Not Available Not Available rosuvastati n 5 mg tablet TAKE 1 TABLET BY MOUTH EVERY DAY active Not Available Not Available No t Available rosuvastati n 20 mg tablet TAKE 1 TABLET BY MOUTH ONCE DAILY 01/17 completed Not Available Not Available Not Available Vitals Date Recorded Body height Respiratory rate Body mass index (BMI) Body weight Oxygen saturation Oxygen saturation in Arterial blood by Pulse oximetry Heart rate Systolic blood pressure Diastolic blood pressure Provider Name and Address Organization Details Last Updated DateTime 4 163.2 cm 20 /min 29 kg/m2 48924.9 9 g 96 % 96 % 62 /min 130 mm[Hg] 82 mm[Hg] Eileen Choi MA [facility] 4 11:05:58 Date Recorded Systolic blood pressure Diastolic blood pressure Systolic blood pressure Diastolic blood pressure Provider Name and Address Organization Details Last Updated DateTime 01/18/2024 140 mm[Hg] 70 mm[Hg] 140 mm[Hg] 72 mm[Hg] BROOKLYN Torrez Attn: Accounting ,[address] [place], [address] , [facility] 11:28:22 Date Recorded Body height Body mass index (BMI) Body weight Respiratory rate Oxygen saturation Oxygen saturation in Arterial blood by Pulse oximetry Heart rate Systolic blood pressure Diastolic blood pressure Provider Name and Address Organization Details Last Updated DateTime 163.2 cm 29 kg/m2 68038.7 g 20 /min 98 % 98 % 67 /min 148 mm[Hg] 88 mm[Hg] Eileen Choi MA [facility] 4 11:05:53 Date Recorded Systolic blood pressure Diastolic blood pressure Provider Name and Address Organization Details Last Updated DateTime 07/18/2024 142 mm[Hg] 70 mm[Hg] BROOKLYN Torrez Attn: Accounting,[address] [place], [address] 07/18/2024 11:33:13 Social History Question Answer Notes LastModified by Organizat ion Details LastModified Time Tobacco Smoking Status Never Smoker Eileen Choi MA null, [facility] 01/18/2024 11:03:31 Do You Have An Advance Directive? Yes Information not available 01/18/2024 What Is Your Level Of Alcohol Consumption? None Information not available 01/18/2024 Are You Blind Or Do You Have Difficulty Seeing? No Glasses Information not available 01/18/2024 What Is Your Level Of Caffeine Consumption? Moderate Coffee Information not available 01/18/2024 In The 14 Days Before Symptom Onset, Have You Had Close Contact With A Laboratory-confir med COVID-19 While That Case Was Ill? No Information not available 01/18/2024 In The 14 Days Before Symptom Onset, Have You Had Close Contact With A Person Who Is Under Investigation For COVID-19 While That Person Was Ill? No Information not available 01/18/2024 Have You Been To An Area Known To Be High Risk For COVID-19? No Information not available 01/18/2024 Are You Deaf Or Do You Have Serious Difficulty Hearing? No Information not available 01/18/2024 What Type Of Diet Are You Following? REGULAR Information not available 01/18/2024 Are There Any Guns Present In Your Home? No Information not available 01/18/2024 What Was The Date Of Your Most Recent Tobacco Screening? 07/18/2024 Information not available 07/18/2024 Do You Use Your Seat Belt Or Car Seat Routinely? Yes Information not available 01/18/2024 Do You Have Smoke And Carbon Monoxide Detectors In Your Home? Yes Information not available 01/18/2024 Do You Use Sunscreen Routinely? No Information not available 01/18/2024 Has Tobacco Cessation Counseling Been Provided? Yes Information not available 01/18/2024 On What Date Was Tobacco Cessation Counseling Provided? 07/18/2024 Information not available 07/18/2024 Do You Or Have You Ever Used Any Other Forms Of Tobacco Or Nicotine? No Information not available 01/18/2024 Sex: Female Functional Status Question Answer Note LastModified by Organizat ion Details LastModified Time Are you able to care for yourself? Yes Information not available 01/18/2024 What is your exercise level? Occasional walk Information not available 01/18/2024 Mental Status None recorded. Family History Relationship Description Onset Age of this Age Resolved Age Notes LastModified by Organization Details LastModified Time Mother Cerebrovascu lar accident [email or web address] Not available 11:39:58 Mother Diabetes mellitus [email or web address] Not available 2023 11:40:03 Mother Heart disease tcarterma Not available 2023 11:40:11 Mother Hypertensive disorder tcarterma Not available 2023 11:40:21 Mother Hypercholest erolemia tcarterma Not available 2023 11:40:27 Father Heart disease tcarterma Not available 2023 11:40:11 Father Osteoporosis tcarterma Not avai lable 01/18/2024 11:40:33 Medical History Condition Response Coronary Artery Disease N Other N High Blood Pressure Y Atrial Fibrillation N Kidney or Bladder Problems N Thyroid Problems N GI Problems N Depression N COPD N Blood Clots N Skin Problems N Anemia N Heart Attack ([place]) N Anxiety Disorder N Diabetes N Muscle, Joint, or Bone Problems Y Seizures/Epilepsy N Acid Reflux (GERD) Y Cancer N Stroke N Asthma N Allergies N High Cholesterol N Hepatitis N Liver Disease N Headaches N Heart Failure Y Osteoporosis Y Gynecological History Statement/Question Response Menses Monthly N Current Control Method Tubal Ligat ion Obstetrics History GPAL:G 0 P 0 0 0 0 Immunizations Vaccine Type Date Status Note Provider Nam e and Address Organization Details Recorded Time pneumococcal polysaccharide PPV23 4 completed JORGE ALBERTO [place] 07/17/2024 10:31:13 Tdap 8 completed J[place]GE ALBERTO [place] 07/17/2024 10:31:13 zoster live 1 completed JORGE ALBERTO [place] 07/17/2024 10:31:13 Past Encounters Encounter ID Performer Location Encounter Start Date Encounter Closed Date Diagnosis/Indication Diagnosis SNOMED-CT Code Diagnosis ICD10 Code Diagnosis Note [id number] BROOKLYN Torrez [facility] e - [place] [address] [facility] [address] [place] [address] 01/18/2024 10:49:40 01/18/2024 11:33:27 Benign essential hypertension 2322411 I10 140/70 today. borderline . monitor. refill on amlodipine 2.5mg daily. continue coreg 25mg bid. Hyperlipidemia 77229913 E78.5 refill crestor 5mg daily. fasting lipids ordered. Gastroesop hageal reflux disease without esophagitis 056305737 K21.9 EGD 2022 stable, no barretts on that evaluation . refill PPI therapy. 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 allopurino l 300mg daily and hydroxyure a 500mg daily. stable. improving. following with hematology Screening mammography 24 846718 Z12.31 mammogram ordered. [id number] BROOKLYN Torrez [facility] e - [place] [address] [place] [address] 07/18/2024 10:48:38 07/18/2024 11:38:34 Body mass index 25-29 - overweight 857423370 Z68.29 BMI is 29 Overweight 703684769 E66 .3 Continue healthy diet and exercise Benign ess ential hypertension 7561652 I10 142/70 today. borderline . monitor. refill on amlodipine 2.5mg daily. continue coreg 25mg bid. all home numbers are very good Hyperlipidemia 21218300 E78.5 on crestor 5mg daily. fasting lipids ordered. Gastroesop hageal reflux disease without esophagitis 069227833 K21.9 EGD 2022 stable, no barretts on that evaluation . 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 allopurino l 300mg daily and hydroxyure a 500mg daily. stable. improving. following with hematology , they order CBC counts Long-term drug therapy 478173878 Z79.899 Routine labs are due Upper resp iratory infection 52042172 J06.9 Z-Gamaliel given for symptoms lasting over 10 days. Health Concerns Section Related Observation LastModified by Organization Detai ls LastModified Time None Recorded Concern Status LastModified by Organization Details LastModified Time None Recorded Advance Directives Directive Y: Payers Encounter Date Sequence Insurance Name Policy Number Policy Maradiaga Covered Member ID Maradiaga Member ID Guarantor Name 01/18/2024 1 [place] Amaris Sparks [id number] Amaris Sparks 01/18/2024 2 [employer] (MEDICARE SUPPLEMENT) Amaris Sparks [id number] Amaris Sparks 07/18/2024 2 [employer] (MEDICARE SUPPLEMENT) Amaris Sparks [id number] Amaris Sparks 07/18/2024 [place] NGS - RHC - FQHC Amaris Sparks [id number] Amaris Sparks Notes Date Note Type Note Provider Name and Address Organization Details Recorded Time 4 text/html HyperlipidemiaReported bypatient.Notes:stable on statin therapy. crestor 5mg daily.HypertensionReported bypatient.Notes:stable on amlodipine 2.5mg , coreg 25mg bid.Reflux/GERDReported bypatient.Notes:stable on pantoprazole 40mg daily. BROOKLYN Torrez Attn: Accounting,[address], [place], [address], [facility] 01/31/2024 19:11:29 4 text/html HyperlipidemiaReported bypatient.Notes:stable on statin therapy. crestor 5mg daily.HypertensionReported bypatient.Notes:stable on amlodipine 2.5mg , coreg 25mg bid.Reflux/GERDReported bypatient.Notes:stable on pantoprazole 40mg daily.Upper Respiratory SymptomsReported bypatient.Notes:Patient reports some upper respiratory congestion sinus congestion for over 2 weeks now. 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, [place], [address], [facility] 08/05/2024 10:53:05 OBGyn Episode No OBEpisode recorded.
--- OUTSIDE RECORDS SUMMARY | 2024-12-11 15:07 | XMS_ITS | Clinical Summary ---
Author Organization [facility] Address [address] [facility] [place] [address] Care Team Providers Care Building Drafter Name Role Phone Julianna Hearn Primary Care Provider [phone] Allergies Active Allergy Reactions Criticality Noted Date Comments Latex Rash Low 12/26/2017 Medications carvedilol (COREG) 25 mg tablet Take 25 mg by mouth. Active omega-3/dha/epa/fis h oil (OMEGA-3 FISH OIL ORAL) Take 1,200 mg by mouth. Active rosuvastatin (CRESTOR) 5 mg tablet Take 5 mg by mouth. Active OTHER daily Judson for Colon Health . Active pantoprazole (PROTONIX) 40 mg Tablet, Delayed Release (E.C.) TK 1 T PO TWICE D. 0 9 Active cholecalciferol, Vitamin D3, (VITAMIN D3) 2,000 unit Tablet Take 2,000 Units by mouth daily. Active amLODIPine (NORVASC) 2.5 mg tablet 3 Active allopurinoL (ZYLOPRIM) 300 mg tabletIndications:E ssential thrombocytosis (CMS/HCC) Take 1 Tablet (300 mg) by mouth daily. 90 Tablet 1 5 Active hydroxyurea (HYDREA) 500 mg capsuleIndications: Essential thrombocytosis (CMS/HCC) Take 1 Capsule (500 mg) by mouth daily. 90 Capsule 1 5 Active Active Problems Problem Noted Date Diagnosed Date Neurofibroma of neck 06/07/2018 Dermal nevus of multiple sites of trunk 06/07/20 18 Apocrine metaplasia of breast, right 05/16/2018 Microcalcification of right breast on mammogram 05/05/2018 Resolved Problems Problem Noted Date Diagnosed Date Resolved Date Skin lesion of back 05/16/2018 11/10/19 19 Benign skin lesion of neck 05/16/2018 0 11/10/2018 Abnormal mammogram 05/05/2018 9 Abnormal ultrasound of breast 05/05/2018 11/10/2018 Encounters Date Type Department Care Team Description 12/11/2024 2:00 PM CDT Office Visit [facility] Oncology and Hematology [facility] [address] [place] [address] Adiel Oliveira MD Essential thrombocytosis ([facility]/HCC) (Primary Dx) 11/21/2024 External Device Data STL ABSTRACTION Provider, Abstract 11/01/[address] [facility] Oncology and Hematology [facility] [address] [place] [address] Adiel Oliveira MD Essential thrombocytosis (CMS/HCC) 10/31/2024 External Device Data STL ABSTRACTION Provider, Abstract 10/25/2024 External Device Data STL ABSTRACTION Provider, Abstract 10/17/[address] [facility] Oncology and Hematology [facility] [address] [place] [address] Adiel Oliveira MD Essential thrombocytosis ([facility]/HCC) from Last 3 Months Family History Medical History Relation Name Comments Heart Disease Father Heart Disease Mother Relation Name Status Comments Brother Alive Daughter Alive Father Mother Sister 1 Alive Sister 2 Alive Sister 3 Alive Sister 4 Alive Sister 5 Alive Son Alive Social History Tobacco Use Types Packs/Day Years Used Date Smoking Tobacco: Never Smokeless Tobacco: Never Tobacco Cessation:Counseling Given: Not Answered Alcohol Use Standard Drinks/Week Comments No 0 (1 standard drink = 0.6 oz pur e alcohol) Comments No Sex and Gender Information Value Date Recorded Sex Assigned at Not on file Legal Sex Female 9:19 AM CDT Gender Identity Not on file Sexual Orientation Not on file Last Filed Vital Signs Vital Sign Reading Time Taken Comments Blood Pressure 134/72 12/11/2024 2:05 PM CDT Pulse 67 12/11/2024 2:02 PM CDT Temperature 36.2 C (97.2 F) 12/11/2024 2:02 PM CDT Respiratory Rate 15 12/11/2024 2:02 PM CDT Oxygen Saturation 97% 12/11/2024 2:02 PM CDT Inhaled Oxygen Concentration - - Weight 76.2 kg (168 lb) 12/11/2024 2:02 PM CDT Height 165.1 cm (5' 5 ) 02/09/2023 3:39 PM CDT Body Mass Index 27.96 02/09/2023 3:39 PM CDT Plan of Treatment Upcoming Encounters Date Type Department Care Team (Late st Contact Info) Description 03/26/2025 11:30 AM CDT Office Visit [facility] Oncology and Hematology [facility] [address] [facility] [address] [place] [address] Adiel Oliveira MD [address] [facility] [address] [place] [address] Health Maintenance Due Date Last Done Comments DIABETES ANNUAL FOOT EXAM 1965 DIABETES MICROALBUMIN ANNUAL SCREEN 1965 LDL CHOLESTEROL ANNUAL 1965 Traditional Medicare (ACO) A nnual Wellness Visit 1966 ZOSTER VACCINE (2 of 3) 03/01/2011 01/04/2011 PNEUMOCOCCAL VACCINE 50+ YEA RS (2 of 2 - PCV) 03/18/2015 03/18/2014 DTAP/TDAP/TD VACCINES (2 - T d or Tdap) 06/18/2018 06/18/2008 RSV VACCINE (60+ or ) (1 - 1-dose 75+ series) 2022 DIABETES HBA1C Q 6 MONTHS 01/07/20242022, 01/18/2023, 09/04/2019 INFLUENZA VACCINE (#1) 2024 DIABETES ANNUAL RETINAL EXAM 05/30/2024, 05/30/2023, 05/31/2022, Additional history exists OSTEOPOROSIS SCREENING Completed 12/30/2021 COLORECTAL SCREENING Discontinued 04/01/2023, 04/01/2023, 01/03/2018, Additional history exists Colorectal Cancer Screening Discontinued FIT-DNA Q 3 years Discontinued FIT/FOBT Q 1 year Discontinued Flex Sig/CT Colonography Q 5 years Discontinued Insurance Monitor Member Subscriber Plan / Payer ( fective 2021-Present) Name:Amaris Sparks Relation to Subscriber:Self Name:Amaris Sparks Payer ID:Not on file Group ID:Not on file Type:[employer] Address: [place] [address] MEDICARE PART A AND B MEDICARE PART A AND B Monitor Member Subscriber Plan / Payer ( fective 2021-Present) Name:Amaris Sparks Relation to Subscriber:Self Name:Amaris Sparks Payer ID:Not on file Group ID:Not on file Type:[employer] Address: [facility] [address] [place] [address] Care Teams Building Drafter Relationship Specialty Start Date End Date Julianna Hearn PA PCP - General Physician Senior Technologist 05/03/18
--- OUTSIDE RECORDS SUMMARY | 2024-12-11 15:07 | XMS_ITS | Encounter Summary ---
Author Organization [facility] Address [facility] [id number] [place] [address] Care Team Providers Care Pipelines Supervisor Name Role Phone Julianna Hearn Primary Care Provider [phone] Reason for Visit * Reason Comments Follow Up Encounter Details Date Type Department Care Team (Late st Contact Info) Description 12/11/2024 2:00 PM CDT Office Visit [facility] Oncology and Hematology - [place] [address] [place] [address] [address] Adiel Oliveira MD [address] [facility] [address] [place] [address] Essential thrombocytosis (CMS/HCC) (Primary Dx) Social History Tobacco Use Types Packs/Day Years [...] on file Sexual Orientation Not on file documented as of this encounter Last Filed Vital Signs Vital Sign Reading Time Taken Comments Blood Pressure 134/72 12/11/2024 2:05 PM CDT Pulse 67 12/11/2024 2:02 PM CDT Temperature 36.2 C (97.2 F) 12/11/2024 2:02 PM CDT Respiratory Rate 15 12/11/2024 2:02 PM CDT Oxygen Saturation 97% 12/11/2024 2:02 PM CDT Inhaled Oxygen Concentration - - Weight 76.2 kg (168 lb) 12/11/2024 2:02 PM CDT Height - - Body Mass Index 27.96 02/09/2023 3:39 PM CDT documented in this encounter Progress Notes * Adiel Oliveira MD - 12/11/2024 2:26 PM CDT HEMATOLOGY / ONCOLOGY PROGRESS NOTE Patient Identification: Name: Amaris Sparks Age: 79 y.o. Sex: female : 1945 DIAGNOSIS Essential thrombocythemia JAK2 mutation positive CURRENT TREATMENT Hydrea 500 mg daily started March 02, 2023 TREATMENT HISTORY SUBJECTIVE Patient came to the office for follow-up visit. She is taking hydroxyurea and tolerating it well. Denies any nausea vomiting. Denies any diarrhea and constipation. Weight and appetite stable. No other new complaints. Review of system Constitutional: Patient did not mention fevers, sweats, denies any tiredness and fatigue, weight and appetite stable HEENT: Patient did not mention sinus congestion, hearing or vision problems Respiratory: Patient did not mention cough, dyspnea, wheeze Cardiovascular: Patient did not mention chest pain, exertional chest pressure/discomfort, nausea, syncope, shortness of breath GI: Patient did not mention constipation, diarrhea, dsyphagia, reflux symptoms, vomiting, melena : Patient did not mention dysuria, frequency, incontinence, urgency Integumentary system: no lymphadenopathy, sweats, flushing Musculoskeletal: Patient not mention: myalgia, arthralgia Neurological: Patient did not mention blurry or disturbed vision, numbness/weakness, dizziness Skin: No lumps, bumps or rashes. 12 point review of system was reviewed Objective: Vital signs in last 24 hours: As per nursing note Exam: General appearance: alert, cooperative, no distress, appears stated age Head: normocephalic, without obvious abnormality, atraumatic Eyes: conjunctivae/corneas clear, EOM's intact Ears: normal external ear canals AU Nose: Nares normal. Septum midline. Mucosa normal. No drainage or sinus tenderness Throat: Lips, mucosa, and tongue normal. Teeth and gums normal Neck: supple, symmetrical, trachea midline. Lungs: clear to auscultation bilaterally Heart: regular rate and rhythm, S1, S2 normal, no murmur, click, rub or gallop Abdomen: soft, non-tender. Bowel sounds normal. No masses, No organomegaly Extremities: extremities normal, atraumatic, no cyanosis or edema Skin: Skin color, texture, turgor normal. No rashes or lesions Lymph nodes: No lymphadenopathy Neuro: No obvious focal deficit Exam as above PATH LABS Labs from February 10 showed C-reactive protein less than 0.5 ferritin 8.2 WBC 8.1 hemoglobin 14.2 MCV 78 platelets 789,000 JAK2 mutation positive Labs from March 29 showed WBC 6.4 hemoglobin 13.5 platelet 523,000. Labs from March 02 showed plateletcount of 829,000 iron 52 saturation 11% ferritin 8.1 Labs from May 26 showed WBC 6.0 hemoglobin 13.6 platelet 491,000 iron 87 saturation 23% [id number] creatinine 1.0 Labs from August 03 showed WBC 6.2 hemoglobin 13.1 platelet 437,000 creatinine 1.4 Labs from October 10 showed WBC 8.7 hemoglobin 13.4 platelet 508,000 creatinine 1.3 Labs from December 13 showed platelet count 476,000 Labs from March 14 showed WBC 7.2 hemoglobin 13 platelet 549,000 Labs from July showed WBC 6.8 hemoglobin 13 platelet 503,000 Labs from December 11 showed WBC 7.7 hemoglobin 14 platelet 623,000 Assessment: Plan: Patient Active Problem List Diagnosis Date Noted Neurofibroma of neck 06/07/2018 Dermal nevus of multiple sites of trunk 06/07/2018 Apocrine metaplasia of breast, right 05/16/2018 Microcalcification of right breast on mammogram 05/05/2018 Essential thrombocythemia JAK2 mutation positive. Patient started hydroxyurea 500 mg daily on March 02, 2023. Labs noted. Platelet count has jumped to 623,000. Will increase hydroxyurea to 500 mg daily on the weekdays and 500 mg twice a day on the weekends. Continue baby aspirin and follow-up in 3 months. TLS prevention. Continue allopurinol 300 mg daily with adequate hydration. Iron deficiency without anemia. Continue oral iron daily. Will repeat iron testing in 3 months. Follow-up in 3 months. 12/11/2024 Adiel Oliveira MD documented in this encounter Plan of Treatment Upcoming Encounters Date Type Department Care Team (Late st Contact Info) Description 03/26/2025 11:30 AM CDT Office Visit [facility] Oncology and Hematology - [place] [address] [facility] [address] [place] [address] Adiel Oliveira MD [address] [facility] [address] [place] [address] Scheduled Orders Name Type Priority Associated Diagnoses Orde r Schedule CBC WITHOUT DIFFERENTIAL Lab Stat Essential thrombocytosis (CMS/HCC) Expected: 03/05/2025, Expires: 12/11/2025 FERRITIN Lab Routine Essential thrombocytosis (CMS/HCC) Expected: 03/05/2025, Expires: 12/11/2025 IRON, TIBC, AND PERCENT SATURATION Lab Routine Essential thrombocytosis (CMS/HCC) Expected: 03/05/2025, Expires: 12/11/2025 BASIC METABOLIC PANEL Lab Stat Essential thrombocytosis (CMS/HCC) Expected: 03/05/2025, Expires: 12/11/2025 documented as of this encounter Visit Diagnoses Diagnosis Essential thrombocytosis (CMS/HCC)- Primary Essential thrombocythemia documented in this encounter Care Teams Pipelines Supervisor Relationship Specialty Start Date End Date Julianna Hearn PA PCP - General Physician Hardwood Floor Installer 05/03/18 documented as of this encounter
--- OUTSIDE RECORDS SUMMARY | 2024-12-11 15:07 | XMS_ITS | Clinical Summary ---
Author Organization [facility] Address [address] [address] Phone Care Team Providers Care Logging Assistant Name Role Phone Julianna Hearn Primary Care Provider Allergies Active Allergy Reactions Criticality Noted Date Comments Latex Rash 12/26/2017 Medications carvedilol (COREG) 25 MG Tablet Take 25 mg by mouth 2 times daily. Active losartan (COZAAR) 50 MG Tablet Take 50 mg by mouth daily. Active rosuvastatin (CRESTOR) 5 MG Tablet Take 5 mg by mouth daily. Active spironolactone (ALDACTONE) 25 MG Tablet Take 25 mg by mouth daily. Active pantoprazole (PROTONIX) 20 MG Tablet Delayed Response Take 40 mg by mouth 2 times daily. Active [place]-3 Fatty Acids (FISH OIL PO) Take by mouth. Active Cholecalciferol (VITAMIN D PO) Take by mouth. Active Active Problems No known active problems Family History Medical History Relation Name Comments Heart Attack Father Diabetes Mother Heart Attack Mother Relation Name Status Comments Father Mother Social History Tobacco Use Types Packs/Day Years Used Date Smoking Tobacco: Never Smokeless Tobacco: Never Alcohol Use Standard Drinks/Week Comments No 0 (1 standard drink = 0.6 oz pur e alcohol) Comments Unknown Sex and Gender Information Value Date Recorded Sex Assigned at Not on file Legal Sex Female 8:57 PM CDT Gender Identity Not on file Sexual Orientation Not on file Last Filed Vital Signs Vital Sign Reading Time Taken Comments Blood Pressure 111/58 01/03/2018 8:22 AM CDT Pulse 57 01/03/2018 8:22 AM CDT Temperature 36 C (96.8 F) 01/03/2018 8:22 AM CDT Respiratory Rate 22 01/03/2018 8:22 AM CDT Oxygen Saturation 99% 01/03/2018 8:22 AM CDT Inhaled Oxygen Concentration - - Weight 81.6 kg (180 lb) 12/26/2017 9:00 AM CDT Height 167.6 cm (5' 6 ) 12/26/2017 9:00 AM CDT Body Mass Index 29.05 12/26/2017 9:00 AM CDT Plan of Treatment Health Maintenance Due Date Last Done Comments DEXA Bone Density 1945 Hepatitis C Virus (HCV) Screening 1945 TdaP Immunization 1945 Pneumococcal Immunization (5 0+ years) (1 of 1 - PCV) 1997 Zoster Immunization (1 of 2) 1997 Respiratory Syncytial Virus (RSV) Immunization (Adult) (1 - 1-dose 75+ series) 2022 Influenza Immunization (#1) 2024 SARS-COV-2 Immunization ( - season) 2024 Colonoscopy High Risk Discontinued 01/03/2018 , 01/14/2011 Colonoscopy Discontinued 01/03/2018, 01/14/2011 Colorectal Cancer Screening Discontinued Cologuard Discontinued Hepatitis B Immunization Aged Out No longer eligible based on patient's age to complete this topic Immunochemical Fecal Occult Blood Discontinued Meningococcal Immunization (ACWY) Aged Out No longer eligible based on patient's age to complete this topic Rotavirus Immunization Aged Out No lo nger eligible based on patient's age to complete this topic Procedures Procedure Name Priority Date/Time Associated Diagnosis Comments COLONOSCOPY Routine 01/14/2011 from Last 3 Months or Most Recently Relevant to Health Maintenance Results * COLONOSCOPY (01/14/2011) Josh Nguyen DO PROCEDURE/MINOR SURGICAL ORDERA BLES Final Result from Last 3 Months or Most Recently Relevant to Health Maintenance Insurance MEDICARE [facility] [employer] parts clerk Care Teams Logging Assistant Relationship Specialty Start Date End Date Julianna Hearn PA PCP - General Family Medicine 11/22/17
== END 2024-12-11 13:35 | disposition home or self-care (01) ==
LOC: ANHLAB 13:35
PROVIDERS: PCP Physician Assistant; Visit Provider Internal Medicine Hematology & Oncology
DX: D47.3 Essential (hemorrhagic) thrombocythemia (principal)
CPT/HCPCS: 36415; 80047; 85025

== ENCOUNTER 2025-03-25 13:25 | Outpatient (CLI) | payer MEDICARE, SELFPAY ==
[2025-03-25 13:42] LABS: Hematocrit 36.1 % (37.0-47.0); Hemoglobin 12.1 g/dL (12.0-15.0); Mean Corpuscular HGB Conc 33.5 g/dl (32-36); Mean Corpuscular Hemoglobin 34.6 pg (26-34); Mean Corpuscular Volume 103.1 fl (80-100); Mean Platelet Volume 10.6 fl (7.4-10.4); Platelet Count Result 402 k/mm3 (150-375); Red Cell Distribution Width 15.4 % (11.5-14.5); White Blood Count 8.5 K/mm3 (4.5-10.0)
[2025-03-25 16:22] LABS: Anion Gap 9 mmol/L (4-12); Blood Urea Nitrogen 21 mg/dL (7-17); Calcium 9.5 mg/dL (8.4-10.2); Carbon Dioxide 25 mmol/L (22-30); Chloride 104 mmol/L (98-107); Estimated Glomerular Filt Rate > 60; Glucose 92 mg/dL (65-110); Potassium 4.4 mmol/L (3.4-5.0); Sodium 138 mmol/L (137-145)
[2025-03-25 16:31] LABS: Iron 34 ug/dL (37-170)
[2025-03-25 16:41] LABS: Percent Iron Saturation 12 % (20-50)
== END 2025-03-25 13:26 | disposition home or self-care (01) ==
PROVIDERS: PCP Physician Assistant; Visit Provider Internal Medicine Hematology & Oncology
DX: D47.3 Essential (hemorrhagic) thrombocythemia (principal)
CPT/HCPCS: 36415; 80048; 82728; 83540; 83550; 85027

== ENCOUNTER 2025-06-25 07:59 | Outpatient (CLI) | payer MEDICARE, SELFPAY ==
--- OUTSIDE RECORDS SUMMARY | 2025-06-06 06:29 | XMS_ITS | Continuity of Care Document ---
Author Organization [employer] [facility] Address [address] [facility] [address] [place] [address] Phone Care Team Providers Care Senior Power Plant Operator Name Role Phone Chanda Maynard OD Unavailable Unavailable Allergies, Adverse Reactions, Alerts Substance Reaction Status Criticality BEE STING KIT Active No Information latex Active No Information Medications Medication Instructions Dosage Effective Dates (start - stop) Status Comments Xdemvy 0.25 % eye drops instill 1 drop by ophthalmic route every 12 hours for 6 weeks into both eyes 1.00 drop - Active amlodipine 2.5 mg tablet take 1 tablet [...] route every day 40 MG - Active Procedures Procedure Date No Charge Optomap Fundus Photos Corneal Pachymetry Office/outpatient Visit, Est No Charge [...] Exam & Treatment Eye Exam & Treatment -2013 Eye Exam & Treatment Eye Exam & Treatment Eye Exam & Treatment Eye Exam & Treatment Eye Exam & Treatment Eye Exam & Treatment Refraction Office Consultation Ophthalmoscopy Ophthalmoscopy Advance Directives Directive Yes / No Effective Date File Name No Information Encounters Encounter Description Practice Location Reason(s) For Visit Diagnoses Date Provider Providers Copied on Encounter [facility] [employer] (formerly [employer]) [facility], [address], [place], [place], [address], [place] tel:[phone] [place] No Information 5 Caesar OD Chanda. [address], [address], [place], [place], [address], [place]. tel:[phone] Office/outpat ient Visit, Est [facility], [address], [place], [place], [address], tel:[phone] [place] Professional Complete Exam (chief complaint) Blepharitis of upper and lower eyelids of both eyes, unspecified typeDry eyes, bilateralEndo thelial corneal dystrophy, bilateralInfe station by DemodexAge-re lated nuclear cataract, bilateral Sep-0 2-202 5 Caesar OD Chanda. [address] [place] [address] [address], [address], [place], [place], [address], [place]. tel:[phone] Referring Provider: Tavo Oliver OD, [facility] [address] [place], [address]. tel:[phone] Office/outpat ient Visit, [facility], [address] [place] [address] [address], [place], [place], [address], tel:[phone] [place] Professional Complete Exam (chief complaint) Dry eyes, bilateralAge- related nuclear cataract, bilateralEndo thelial corneal dystrophy, bilateralPVD (posterior vitreous detachment), both eyes Sep-0 3-202 4 Caesar OD Chanda. [address] [place] [address] i, [address], [place], [place], [address], [place]. tel:[phone] Referring Provider: Tavo Oliver OD, [facility] [address] [place], [address]. tel:[phone] [facility], [address] [place] [address] [address], [place], [place], [address], [place] tel:[phone] [place] Professional Complete Exam (chief complaint) Age-related nuclear cataract, bilateralDry eyes, bilateralEndo thelial corneal dystrophy, bilateral Aug-2 8-202 3 Caesar OD Chanda. [address] [place] [address] [address], [address], [place], [place], [address], [place]. tel:[phone] Referring Provider: Tavo Oliver OD, [facility] [address] [place], [address]. tel:[phone] [facility], [address], [place], [place], [address], [place] [phone] [place] Professional Complete Exam (chief complaint) Age-related nuclear cataract, bilateralDry eyes, bilateralEndo thelial corneal dystrophy, bilateral Aug- 2 Alejo Ty. [address], [address], [place], [place], [address], [place]. tel:[phone] Referring Provider: Tavo Oliver OD, [facility] [address] [place], [address]. tel:[phone] [facility], [address], [place], [place], [address], [place] [phone] [place] Professional Complete Exam (chief complaint) Age-related nuclear cataract, bilateralDry eyes, bilateralEndo thelial corneal dystrophy, bilateral May- 1 Alejo Ty. [address], [address], [place], [place], [address], [place]. tel:[phone] Referring Provider: Tavo Oliver OD, [facility] [address] [place], [address]. tel:[phone] [facility], [address] [place] [address] [address], [place], [place], [address], [place] [phone] [place] Professional Complete exam (chief complaint) Age-related nuclear cataract, bilateralPunc piedra keratitis, bilateralEndo thelial corneal dystrophyVitr eous degeneration, bilateral Aug- 0 Alejo Ty. [address], [address], [place], [place], [address], [place]. tel:[phone] Referring Provider: Tavo Oliver OD, [facility] [address] [place], [address]. tel:[phone] [facility], [address] [place] [address] [address], [place], [place], [address], [place] tel:[phone] SEC [place] Professional No Information Jan-0 0 Melo Crawford. [address], [address], [place], [place], [address], [place]. tel:[phone] Office/outpat ient Visit, Est [facility], [address] [place] [address] [address], [place], [place], [address], [place] tel:[phone] SEC [place] Professional WIE (chief complaint) Abrasion of right cornea, initial encounter Mar- 9 Ida Cobb. [address] [place] [address], [address], [place], [place], [address], [place]. tel:[phone] Referring Provider: Tavo Oliver OD, [facility] [address] [place], [address]. tel:[phone] [facility], [address] [place] [address] [address], [place], [place], [address], [place] tel:[phone] [place] Professional Complete Exam (chief complaint) Age-related nuclear cataract, bilateralPVD (posterior vitreous detachment), both eyesCorneal pigmentation of both eyes Jan- 9 Melo Crawford. [address], [address], [place], [place], [address], [place]. tel:[phone] Referring Provider: Tavo Oliver OD, [facility] [address] [place], [address]. tel:[phone] [facility], [address] [place] [address] [address], [place], [place], [address], [place] tel:[phone] SEC [place] Professional No Information Dec- 9 Melo Crawford. [address], [address], [place], [place], [address], [place]. tel:[phone] Office/outpat ient Visit, Est [facility], [address], [place], [place], [address], [place] tel:[phone] [place] Professional sees a light in vision (chief complaint) PVD (posterior vitreous detachment), both eyesAge-relat ed nuclear cataract, bilateral Aug- 8 Melo Crawford. [address] [facility] [address], [address], [place], [place], [address], [place]. tel:[phone] Referring Provider: Tavo Oliver OD, [facility] [address] [place], [address]. tel:[phone] [facility], [address], [place], [place], [address], [place] tel:[phone] [place] Professional Complete Exam (chief complaint) No Information Apr-0 8 Manuel Raines. [address] [facility], [place], [address], [place]. tel:[phone] Referring Provider: Tavo Oliver OD, [facility] [address] [place], [address]. tel:[phone] [facility], [address] [place] [address] [address], [place], [place], [address], [place] tel:[phone] [facility] No Information Dec- 8 Ida Cobb. [address], [address], [place], [place], [address], [place]. tel:[phone] [facility], [address] [place] [address] [address], [place], [place], [address], [place] tel:[phone] SEC [facility] Professional Complete Eye Exam (chief complaint) No Information Apr-0 7 Vicente Shaffer. [address], [address], [place], [place], [address], [place]. tel:[phone] Referring Provider: Tavo Oliver OD, [facility] [address] [place], [address]. tel:[phone] [facility], [address], [place], [place], [address], [place] tel:[phone] [place] Professional Yearly-Com plete (chief complaint) No Information Apr-0 1-201 6 Wankum Edmund. [address], [facility] [place], [address], [place]. tel:[phone] Referring Provider: Tavo Oliver OD, [facility] [address] [place], [address]. tel:[phone] [facility], [address], [place], [place], [address], [place] tel:[phone] [place] Professional No Information Mar-1 -201 6 Wankum Edmund. [address], [facility] [place], [address], [place]. tel:[phone] [facility], [address], [place], [place], [address], [place] [phone] [place] Professional Blurry vision (chief complaint) No Information Mar-2 4-201 5 Ebony Licona. [address] [facility], [address], [place], [address], [place]. tel:[phone] Referring Provider: Tavo Oliver OD, [facility] [address] [place], [address]. tel:[phone] [facility], [address], [place], [place], [address], [place] tel:[phone] [place] Professional No Information Mar-2 4-201 4 Wankum Edmund. [address], [place], [address], [place]. tel:[phone] Referring Provider: Tavo Oliver OD, [facility] [address] [place], [address]. tel:[phone] [facility], [address] [place] [address] [address], [place], [place], [address], tel:[phone] [place] Professional No Information Mar-2 2-201 3 Wankum Edmund. [address] [facility], [facility] [place], [address], [place]. tel:[phone] Referring Provider: Tavo Oliver OD, [facility] [address] [place], [address]. tel:[phone] [facility], [address] [place] [address] [address], [place], [place], [address], [place] tel:[phone] [facility] Professional No Information Mar-1 9-201 2 Wankum Edmund. [address] [facility] [facility], [facility] [place], [address], [place]. tel:[phone] Referring Provider: Tavo Oliver OD, [facility] [address] [place], [address]. tel:[phone] [facility], [address] [place] [address] [address], [place], [place], [address], [place] tel:[phone] [facility] Professional No Information Mar-1 4-201 1 Wankum Edmund. [address] [facility], [facility] [place], [address], [place]. tel:[phone] Referring Provider: Tavo Oliver OD, [facility] [address] [place], [address]. tel:[phone] [facility], [address] [place] [address] [address], [place], [place], [address], [place] tel:[phone] [facility] Professional No Information Mar-0 5-201 0 Wankum Edmund. [address], [address] [place], [address], [place]. tel:[phone] Referring Provider: Tavo Oliver OD, [facility] [address] [place], [address]. tel:[phone] [facility], [address] [place] [address] [address], [place], [place], [address], [phone] [facility] Professional No Information Mar-0 9-200 9 Wandereck Shaffer. [address], [facility] [place], [address], [place]. tel:[phone] Referring Provider: Tavo Oliver OD, [facility] [address] [place], [address]. tel:[phone] [facility], [address] [place] [address] [address], [place], [place], [address], [phone] [facility] Professional No Information Mar-0 3-200 8 Wandereck Shaffer. [address], [facility] [place], [address], [place]. tel:[phone] Referring Provider: Tavo Oliver OD [facility] [address] [place], [address]. tel:[phone] Office Consultation [facility], [address] [place] [address] [address], [place], [place], [address], [place] [phone] [facility] Professional No Information Ashu-3 0-200 8 Adela Stringer. [address] [employer], [facility] [place], [address], [place]. tel:[phone] Referring Provider: Tavo Oliver OD, [facility] [address] [place], [address]. tel:[phone] Family History Family Member Type Diagnosis Age At Onset Mother Problem (finding) diabetes melli tus in first degree relative Problem (finding) Mother Problem (finding) Heart disease Father Problem (finding) Heart disease Payers Payer name Insurance type Covered alliance party ID Authortri arango(s) [place] [id number] [facility] [id number] Social History Type Description Quantity Date Captured [...] with Edmund Zhang M.D. for Complete Exam. SENILE NUCLEAR CATAR ACT - Educational material given Related to SENILE NUCLEAR CATARACT - Return in 1 year w ith [...] Related to See list of assessments above mild nsc ou - old rx rewritten [...]
--- NOTE | ~2025-06-25 | MM_ITS ---
EXAMINATION: MM screening kat BI w mary HISTORY: Screening TECHNIQUE: Craniocaudal and mediolateral oblique 3-D tomosynthesis images were obtained and synthetic 2-D images were generated. CAD analysis was submitted and interpreted. COMPARISON: 03/15/2023 BREAST PARENCHYMAL COMPOSITION: The breasts are heterogeneously dense, which may obscure small masses. FINDINGS: There is no evidence of suspicious mass, calcification, or architectural distortion to suggest malignancy. There has been no suspicious interval change. IMPRESSION: 1. No mammographic evidence of malignancy. Recommend routine screening mammography in one year. BI-RADS Category 2: Benign finding(s) Reviewed, dictated and finalized at location Q. IMPRESSION: 1. No mammographic evidence of malignancy. Recommend routine screening mammogra phy in one year. BI-RADS Category 2: Benign finding(s)
--- OUTSIDE RECORDS SUMMARY | 2025-06-25 08:16 | XMS_ITS | Clinical Summary ---
Author Organization [facility] Address [address] [facility] [place] [address] Care Team Providers Care Chemical Maker Name Role Phone Julianna Hearn Primary Care Provider [phone] Allergies Active Allergy Reactions Criticality Noted Date Comments Latex Rash Low 12/26/2017 Medications carvedilol (COREG) 25 mg tablet Take 25 mg by mouth. Active omega-3/dha/epa/fi sh oil (OMEGA-3 FISH OIL ORAL) Take 1,200 [...] amLODIPine (NORVASC) 2.5 mg tablet 3 Active hydroxyurea (HYDREA) 500 mg capsuleIndications :Essential thrombocytosis (CMS/HCC) Take 1 Capsule (500 mg) by mouth Tuesday thru Tuesday, and 2 capsules my mouth Tuesday and Tuesday. 108 Capsule 1 5 Active allopurinoL (ZYLOPRIM) 300 mg tabletIndications: Essential thrombocytosis (CMS/HCC) Take 1 Tablet (300 mg) by mouth daily. 90 Tablet 2 5 Active allopurinoL (ZYLOPRIM) 300 mg tabletIndications: Essential thrombocytosis (CMS/HCC) Take 1 Tablet (300 mg) by mouth daily. 14 Tablet 5 025 Discontin ued(Reord er) Active Problems Problem Noted Date Diagnosed Date [...] Encounters Date Type Department Care Team Description 06/13/2025 [facility] Oncology and Hematology [facility] [address] [place] [id number] Adiel Oliveira MD Essential thrombocytosis ([facility]/HCC) 06/04/2025 External Device Data ST[facility] ABSTRACTION Provider, Abstract 05/22/2025 External Device Data [facility] ABSTRACTION Provider, Abstract 04/17/2025 External Device Data [facility] ABSTRACTION Provider, Abstract 04/17/2025 External Device Data [facility] ABSTRACTION Provider, Abstract 04/17/2025 External Device Data ST[facility] ABSTRACTION Provider, Abstract 03/28/2025 [facility] Oncology and Hematology [facility] [address] [place] [id number] Adiel Oliveira MD Essential thrombocytosis ([facility]/HCC) [facility] [address] [place] [address] Adiel Oliveira MD Essential thrombocytosis ([facility]/HCC) 03/28/2025 Refill [facility]ology - [place] [address] [place] [address] Adiel Oliveira MD Essential thrombocytosis ([facility]/HCC) 03/26/2025 11:30 AM CDT Office Visit [facility] [address] [place] [address] Adiel Oliveira MD Essential thrombocytosis (CMS/HCC) (Primary Dx); Dietary iron deficiency without anemia 03/26/2025 Orders Only [facility] - [place] [address] [place] [address] Adiel Oliveira MD 03/25/2025 Orders Only [facility] - [place] [address] [place] [id number] Adiel Oliveira MD from Last 3 Months Family History Medical [...] Sign Reading Time Taken Comments Blood Pressure 117/73 03/26/2025 11:35 AM CDT Pulse 67 03/26/2025 11:35 AM CDT Temperature 36.7 C (98 F) 03/26/2025 11:35 AM CDT Respiratory Rate 15 03/26/2025 11:3 5 AM CDT Oxygen Saturation 97% 03/26/2025 11: 35 AM CDT Inhaled Oxygen Concentration - - Weight 73.8 kg (162 lb 12.8 oz) 025 11:35 AM CDT Height 165.1 cm (5' 5) 02/09/2023 3:39 PM CDT Body Mass Index 27.09 02/09/2023 3:39 PM CDT Plan of Treatment Upcoming Encounters Date Type Department Care Team (Late st Contact Info) Description 07/31/2025 11:45 AM CDT [facility] Visit [facility] [place] [address] [place] [address] Adiel Oliveira MD [address] [facility] [facility] [address] [place] [address] Health Maintenance Due Date Last Done Comments DIABETES ANNUAL FOOT EXAM 1965 DIABETES MICROALBUMIN ANNUAL SCREEN 1965 LDL CHOLESTEROL ANNUAL 1965 ZOSTER VACCINE (2 of 3) 03/01/2011 01/04/2011 PNEUMOCOCCAL VACCINE 50+ YEA RS (2 of 2 - PCV) 03/18/2015 03/18/2014 DTAP/TDAP/TD VACCINES (2 - T d or Tdap) 06/18/2018 06/18/2008 RSV VACCINE (60+ or ) (1 - 1-dose 75+ series) 2022 DIABETES ANNUAL RETINAL EXAM 05/31/2023, 05/25/2021, 05/20/2020, Additional history exists DIABETES HBA1C Q 6 MONTHS 01/07/20242022, 01/18/2023, 09/04/2019 INFLUENZA VACCINE (#1) 2025 OSTEOPOROSIS SCREENING 12/30/2026 12/30/2021 COLORECTAL SCREENING Discontinued 04/01/2023, 04/01/2023, 01/03/2018, Additional history exists Colorectal Cancer Screening Discontinued FIT-DNA Q 3 years Discontinued FIT/FOBT Q 1 year Discontinued Flex Sig/CT Colonography Q 5 years Discontinued Procedures Procedure Name Priority Date/Time Associated Diagnosis Comments CBC WITH DIFFERENTIAL Routine 03/25/2025 4:16 PM CDT IRON LEVEL Routine 03/25/2025 12:26 PM CDT from Last 3 Months Results * CBC WITH DIFFERENTIAL (03/25/2025 4:16 PM CDT) Blood Adiel Oliveira MD HEMATOLOGY ORDERABLES Final Res ult * IRON LEVEL (03/25/2025 12:26 PM CDT) Blood Adiel Oliveira MD CHEMISTRY ORDERABLES Final Resu lt from Last 3 Months Insurance [employer] INSURANCE [employer] MEDICARE PART A AND B MEDICARE PART A AND B [employer] INSUR[employer] [place] [address] [address] [address] SUPP Care Teams Chemical Maker Relationship Specialty Start Date End Date Julianna Hearn PA PCP - General Physician Occ Therapist 05/03/18
--- OUTSIDE RECORDS SUMMARY | 2025-06-25 08:16 | XMS_ITS | Clinical Summary ---
Author Organization [facility] Address [address] [address] Phone Care Team Providers Care Cluster Bore Operator Name Role Phone Julianna Hearn Primary Care [...] mg by mouth 2 times daily. Active [place]-3 Fatty Acids (FISH OIL PO) Take by [...] 9:00 AM CDT Height 167.6 cm (5' 6) 12/26/2017 9:00 AM CDT Body Mass Index 29.05 12/26/2017 9:00 AM CDT Plan of Treatment Health Maintenance Due Date Last Done Comments Hepatitis C Virus (HCV) Screening 1945 TdaP Immunization 1945 Pneumococcal Immunization (5 0+ years) (1 of 1 - PCV) 1997 Zoster Immunization (1 of 2) 1997 Respiratory Syncytial Virus (RSV) Immunization (Adult) (1 - 1-dose 75+ series) 2022 SARS-COV-2 Immunization ( - 2023- season) 2024 Influenza Immunization (#1) 2025 Colonoscopy Discontinued 01/03/2018, 01/14/2011 Colorectal Cancer Screening Discontinued Cologuard Discontinued Hepatitis B Immunization Aged Out No longer eligible based on patient's age to complete this topic Human Papillomavirus (HPV) Immunization Aged Out No longer eligible based [...] Recently Relevant to Health Maintenance Insurance MEDICARE [facility] 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
== END 2025-06-25 08:00 | disposition home or self-care (01) ==
LOC: ANHFOHIMG 08:00
PROVIDERS: PCP Physician Assistant; Visit Provider Physician Assistant
DX: Z12.31 Encounter for screening mammogram for malignant neoplasm of breast (principal)
CPT/HCPCS: 77063; 77067

== ENCOUNTER 2025-07-30 16:21 | Outpatient (CLI) | payer MEDICARE, SELFPAY ==
--- OUTSIDE RECORDS SUMMARY | 2025-06-06 06:29 | XMS_ITS | Continuity of Care Document ---
Author Organization [employer] [facility] [place], [place] Address [address] [facility] [address] [place] [address] Phone Care Team Providers Care Director Of Corporate Communications Name Role Phone Chanda Maynard OD Unavailable Unavailable Allergies, Adverse Reactions, Alerts Substance Reaction Status Criticality BEE STING KIT Active No Information latex Active No Information Medications Medication Instructions Dosage Effective Dates (start - stop) Status Comments amlodipine 2.5 mg tablet take 1 tablet by oral route every day 2.5 MG - Active hydroxyzine HCl 50 mg tablet take 1 tablet by oral route 4 times every day 50 MG - Active allopurinol 300 mg tablet take 1 tablet by oral route every day 300 MG - Active Refresh Tears PF 0.5 %-0.9 % eye drops instill 1 drop by ophthalmic route 2 times every day as needed 1 drop - Active Refresh Liquigel 1 % eye liquid gel drops as needed - Active Vitamin D3 1,000 unit capsule tablet by mouth once a day - Active Fish Oil 1,000 mg (120 mg-180 mg) capsule 1 tablet by mouth once a day - Active rosuvastatin 5 mg tablet take 2 tablet by oral route every day 10 MG - Active carvedilol 25 mg tablet take 1 tablet by oral route 2 times every day with food 25 MG - Active Pantoprazole 40 mg Tab, Delayed Release take 1 tablet (40MG) by ORAL route every day 40 MG - Active Xdemvy 0.25 % eye drops instill 1 drop by ophthalmic route every 12 hours for 6 weeks into both eyes 1.00 drop - No Longer Active Procedures Procedure Date No Charge Optomap Fundus Photos Sep-02-2 025 Corneal Pachymetry Office/outpatient Visit, Est No Charge Optomap Fundus Photos 024 Refraction Corneal Pachymetry Office/outpatient Visit, Est Latanya Eye Mask Corneal Pachymetry Fundus Photography W/ Report Eye Exam & Treatment Corneal Pachymetry No Charge Optomap Fundus Photos 022 Eye Exam & Treatment No Charge Optomap Fundus Photos 021 Eye Exam & Treatment No Charge Optomap Fundus Photos 020 Eye Exam & Treatment Office/outpatient Visit, Est Eye Exam & Treatment No Charge Refraction Office/outpatient Visit, Est Eye Exam & Treatment Refraction Eye Exam & Treatment Eye Exam & Treatment Eye Exam & Treatment Eye Exam & Treatment Eye Exam & Treatment Eye Exam & Treatment Eye Exam & Treatment Eye Exam & Treatment Eye Exam & Treatment Eye Exam & Treatment Refraction Office Consultation Ophthalmoscopy Ophthalmoscopy Advance Directives Directive Yes / No Effective Date File Name No Information Encounters Encounter Description Practice Location Reason(s) For Visit Diagnoses Date Provider Providers Copied on Encounter [facility] [place], [address], [place], [place], [address], [place] tel:[phone] [place] No Information 5 Caesar OD Chanda. [address], [address], [place], [place], [address], [place]. tel:[phone] [facility]pat ient Visit[facility], [address] [place] [address] [address], [place], [place], [address], tel:[phone] SEC [place] Professional Complete Exam (chief complaint) Blepharitis of upper and lower eyelids of both eyes, unspecified typeDry eyes, bilateralEndo thelial corneal dystrophy, bilateralInfe station by DemodexAge-re lated nuclear cataract, bilateral Sep-0 2-202 5 Caesar OD Chanda. [address] [place] [address] i, [address], [place], [place], [address], [place]. tel:[phone] Referring Provider: Tavo Oliver OD, [facility] [address] [email or web address], [address]. tel:[phone] Office/outpat ient Visit, [facility] [place], [place], [address] [place] [address] [address], [place], [place], [address], tel:[phone] [place] Professional Complete Exam (chief complaint) Dry eyes, bilateralAge- related nuclear cataract, bilateralEndo thelial corneal dystrophy, bilateralPVD (posterior vitreous detachment), both eyes Sep-0 3-202 4 Caesar OD Chanda. [address] [place] [address] i, [address], [place], [place], [address], [place]. tel:[phone] Referring Provider: Tavo Oliver OD, [facility] [address] [email or web address], [address]. tel:[phone] [facility], [address] [place] [address] [address], [place], [place], [address], [place] tel:[phone] SEC [place] Professional Complete Exam (chief complaint) Age-related nuclear cataract, bilateralDry eyes, bilateralEndo thelial corneal dystrophy, bilateral Aug-2 8-202 3 Caesar OD Chanda. [address] [place] [address] i, [address], [place], [place], [address], [place]. tel:[phone] Referring Provider: Tavo Oliver OD, [facility] [address] [email or web address], [address]. tel:[phone] [facility], [address] [place] [address] [address], [place], [place], [address], [place] [phone] SEC [facility] Professional Complete Exam (chief complaint) Age-related nuclear cataract, bilateralDry eyes, bilateralEndo thelial corneal dystrophy, bilateral May- 2 Alejo Ty. [address], [address] [place], [address], [place]. tel:[phone] Referring Provider: Tavo Oliver OD, [facility] [address] [place], [address]. tel:[phone] [facility], [address] [place] [address] [address], [place], [place], [address], [place] [phone] SEC [facility] Professional Complete Exam (chief complaint) Age-related nuclear cataract, bilateralDry eyes, bilateralEndo thelial corneal dystrophy, bilateral May- 1 Alejo Ty. [address], [address] [place], [address], [place]. tel:[phone] Referring Provider: Tavo Oliver OD, [facility] [address] [place], [address]. tel:[phone] [facility], [address] [place] [address] [address], [place], [place], [address], [place] [phone] SEC [facility] Professional Complete exam (chief complaint) Age-related nuclear cataract, bilateralPunc piedra keratitis, bilateralEndo thelial corneal dystrophyVitr eous degeneration, bilateral Aug- 0 Alejo Ty. [address], [address] [place], [address], [place]. tel:[phone] Referring Provider: Tavo Oliver OD, [facility] [address] [place], [address]. tel:[phone] [facility], [address] [place] [address] [address], [place], [place], [address], [place] tel:[phone] SEC [place] Professional No Information Jan-0 0 Melo Crawford. [address], [address], [place], [place], [address], [place]. tel:[phone] Office/outpat ient Visit, Est [facility], [address] [place] [address] [address], [place], [place], [address], [place] tel:[phone] SEC [place] Professional WIE (chief complaint) Abrasion of right cornea, initial encounter Mar- 9 Ida Cobb. [address] [place] [address], [address], [place], [place], [address], [place]. tel:[phone] Referring Provider: Tavo Oliver OD, [email or web address] [facility] [address] [place], [address]. tel:[phone] [facility], [address] [place] [address] [address], [place], [place], [address], [place] tel:[phone] SEC [place] Professional Complete Exam (chief complaint) Age-related nuclear cataract, bilateralPVD (posterior vitreous detachment), both eyesCorneal pigmentation of both eyes Jan- 9 Melo Crawford. [address], [address], [place], [place], [address], [place]. tel:[phone] Referring Provider: Tavo Oliver OD, [facility] [address] [email or web address], [address]. tel:[phone] [facility], [address] [place] [address] [address], [place], [place], [address], [place] tel:[phone] SEC [place] Professional No Information 9 Melo Crawford. [address], [address], [place], [place], [address], [place]. tel:[phone] Office/outpat ient Visit, Est [facility], [address], [place], [place], [address], [place] tel:[phone] SEC [place] Professional sees a light in vision (chief complaint) PVD (posterior vitreous detachment), both eyesAge-relat ed nuclear cataract, bilateral May- 8 Melo Crawford. [address] [facility] [employer], [address], [place], [place], [address], [place]. tel:[phone] Referring Provider: Tavo Oliver OD, [facility] [address] [place], [address]. tel:[phone] [facility], [address], [place], [place], [address], [place] tel:[phone] SEC [place] Professional Complete Exam (chief complaint) No Information Apr-0 8 Manuel Raines. [address] [place], [address], [place]. tel:[phone] Referring Provider: Tavo Oliver OD, [facility] [address] [place], [address]. tel:[phone] [facility], [address] [place] [address] [address], [place], [place], [address], [place] tel:[phone] SEC Edu Walter [facility] No Information 8 Ida Cobb. [address], [address], [place], [place], [address], [place]. tel:[phone] [facility], [address], [place], [place], [address], [place] tel:[phone] SEC [facility] Professional Complete Eye Exam (chief complaint) No Information Apr-0 7 Vicente Shaffer. [address], [place], [place], [address], [place]. tel:[phone] Referring Provider: Tavo Scheiter OD, [facility] [address] [place], [address]. tel:[phone] [facility], [address], [place], [place], [address], [place] tel:[phone] SEC [place] Professional Yearly-Com plete (chief complaint) No Information Apr-0 1-201 6 Wankum Edmund. [address], [facility] [place], [address], [place]. tel:[phone] Referring Provider: Tavo Oliver OD, [facility] [address] [place], [address]. tel:[phone] [facility], [address], [place], [place], [address], [place] [phone] SEC [facility] Professional No Information Mar-1 - 6 Wankum Edmund. [address], [facility] [place], [address], [place]. tel:[phone] [facility], [address], [place], [place], [address], [place] [phone] [place] Professional Blurry vision (chief complaint) No Information Mar-2 4- 5 Ebony Licona. [address], [address], [place], [address], [place]. tel:[phone] Referring Provider: Tavo Oliver OD, [facility] [address] [place], [address]. tel:[phone] [facility], [address], [place], [place], [address], [place] tel:[phone] SEC [facility] Professional No Information Mar-2 4-201 4 Wankum Edmund. [address], [address] [place], [address], [place]. tel:[phone] Referring Provider: Tavo Scheiter OD, [facility] [address] [place], [address]. tel:[phone] [facility], [address], [place], [place], [address], tel:[phone] SEC [place] Professional No Information Mar-2 2-201 3 Wankum Edmund. [address] [facility] [place], [address], [place]. tel:[phone] Referring Provider: Tavo Oliver OD, [facility] [address] [place], [address]. tel:[phone] [facility], [address] [place] [address] [address], [place], [place], [address], tel:[phone] SEC [facility] Professional No Information Mar-1 9-201 2 Wankum Edmund. [address] [facility] [place], [place], [address], [place]. tel:[phone] Referring Provider: Tavo Oliver OD, [facility] [address] [place], [address]. tel:[phone] [facility], [address] [place] [address] [address], [place], [place], [address], [place] tel:[phone] SEC [facility] Professional No Information Mar-1 4-201 1 Wankum Edmund. [address] [facility] [place], [address], [place]. tel:[phone] Referring Provider: Tavo Oliver OD, [facility] [address] [place], [address]. tel:[phone] [facility], [address] [place] [address] [address], [place], [place], [address], [place] tel:[phone] SEC [facility] Professional No Information Mar-0 5-201 0 Wankum Edmund. [address] [employer], [address], [place], [address], . tel:[phone] Referring Provider: Tavo Oliver OD, [facility] [address] [place], [address]. tel:[phone] [facility], [address] [place] [address] [address], [place], [place], [address], tel:[phone] SEC [facility] Professional No Information Mar-0 9-200 9 Vicente Shaffer. [address], [facility] [place], [address], [place]. tel:[phone] Referring Provider: Tavo Oliver OD [facility] [address] [place], [address]. tel:[phone] [facility], [address] [place] [address] [address], [place], [address], tel:[phone] [facility] Professional No Information Mar-0 3-200 8 Vicente Shaffer. [address] [employer], [facility] [place], [address], [place]. tel:[phone] Referring Provider: Tavo Oliver OD [facility] [address] [place], [address]. tel:[phone] Office Consultation [facility], [address] [place] [address] [address], [place], [place], [address], [place] tel:[phone] SEC [facility] Professional No Information Oct-3 0-200 8 Adela Stringer. [address] [employer], [facility], [address], [place]. tel:[phone] Referring Provider: Tavo Oliver OD, [facility] [address] [place], [address]. tel:[phone] Family History Family Member Type Diagnosis Age At Onset Mother Problem (finding) diabetes melli tus in first degree relative Problem (finding) Mother Problem (finding) Heart disease Father Problem (finding) Heart disease Payers Payer name Insurance type Covered democrat ID Authortri arango(s) [place] [id number] [facility] [id number] Social History Type Description Quantity Date Captured Comments Alcohol Use Details Unknown Caffeine Use Details Unknown Tobacco Use Status No Information Smoking Status No Information Sex Female Chief Complaint And Reason For Visit No Information Reason For Referral Reason For Referral No Information Plan Of Treatment Date Type Action Status Appointment Amaris Sparks BOOKED Patient Education Cataracts: Care Instruc tions completed Patient Education Cataracts: Care Instruc tions completed Patient Education Cataracts: Care Instruc tions completed Patient Education Corneal Scratches: Care Instructions completed Patient Education Cataracts: Care Instruc tions completed Patient Education Cataracts: Care Instruc tions completed History Of Present Illness Encounter Date Complaint History Of Prese nt Illness Complete Exam The 80 year old patient presents for a complete exam ou. Monitoring cataracts ou and Fuchs ou. Patient denies any changes in vision ou. Patient thinks her eyes get dry. Complete Exam The 79 year old patient presents for evaluation of 1 year Complete Exam in the right eye and left eye. Monitoring Cataracts OU, Fuchs OU. Pt states sometimes she notices that her vision gets blurred for a bit then clears up. Pt states both DV and NV are effected by this. Pt would like an updated glasses Rx if it is needed, she would like to get new glasses. Complete Exam The 78 year old patient presents for evaluation of Complete Exam in the right eye and left eye. Pt states vision has been about the same since last visit. Pt is using Refresh 3-4 times week. Complete Exam The 77 year old patient presents for a complete exam ou monitoring cataracts ou and Fuchs ou. Patient states sometimes vision gets cloudy and then it clears up. Patient denies any changes in vision ou. Complete Exam The 76 year old female presents for evaluation of Complete Exam in the right eye and left eye. Hx of PVD OU, Cataracts OU, and Corneal dystrophy OU. Patient states eyes get dry she uses systane prn OU. Patient states VA sometimes gets foggy but then clears up. Complete exam The 75 year old female presents for evaluation of Complete exam in the right eye and left eye. Hx Cataract OU, PVD OU. Pt reports stable vision in current spec Rx. Pt reports difficulty focusing at a distance occasionally, but vision gets better when she blinks. Pt reports clear wavy lines in OS periphery. Pt denies recent episodes of flashes, dark curtains or trauma OU. Pt reports ATs prn OU. WIE The 73 year old female presents for a WIE. Patient states she thinks she got a knat in OD about a week ago. Patient states on Tuesday OD was red and has FBS OD. Patient has been using AT. Complete Exam The 73 year old female presents for evaluation of Complete Exam in the right eye and left eye. Hx of PVD OU and Mild Cataracts OU. Patient states she is till seeing the wavy lines as she was at her last visit. The lines coma and go. sees a light in vision The 73 ye ar old female presents for evaluation of sees a light in vision in the left eye. Hx of PVD OU and Cataracts OU. Patient states about a week ago she started seeing a light in her temporal VA in the left eye. Patient states it's not flashes of light the light stays there about 30 seconds then goes away. She also has continuing floaters that she has always had. Patient would like a new rx today for glasses, aware of fee and signed abn form Complete Exam The 72 year old female presents for a complete exam ou monitoring cataracts. Patient c/o eyes are itchy ou and c/o floaters ou (not new). Patient denies any changes in vision ou. Complete Eye Exam The 71 year ol d female presents for Complete Eye Exam. Patient Hx Mild Nuclear Sclerosis OU and Rosacea. Patient reports the vision seems mostly stable; states sometimes she has trouble seeing at a distance. Patient wants a new glasses rx today. Patient uses AFT as needed for irritation and mild itching. Yearly-Complete The 70 year old female presents for Yearly Complete exam. Patient has a history of Cataracts OU, Disciform Keratitis, RAQUEL, and Vitreous Degeneration. Patient states her vision is doing well. Patient says she hasn't noticed any new changes and her vision appears to be about the same. Patient states she does not use any eye drops. Blurry vision The 69 year old female presents for a complete exam. PT denies any pain or discomfort at this time. PT states v/a is stable. PT does not use any gtts at this time. Functional Status Date Functional Assessmen t No Information Instructions Date Instruction Additional Infor mation Impression/Plan Impression/Plan Impression/Plan Impression/Plan Impression/Plan Impression/Plan Impression/Plan Impression/Plan Educational material given Relat ed to PVD (posterior vitreous detachment), both eyes Impression/Plan 1 year for complete exam Related to Dry eyes, bilateral Impression/Plan Related to PVD ( posterior vitreous detachment), both eyes Impression/Plan Impression/Plan Related to Dry e yes, bilateral Impression/Plan Related to Bleph aritis of upper and lower eyelids of both eyes, unspecified type Impression/Plan - Di scussed diagnosis in detail with patient. Discussed cataracts with pt and treatment options. pt also understands at this time vision does not qualify to have CE with insurance coverage. No signs of Glaucoma or AMD OU. Pt aware no change in refractive error. Rx for glasses given at patients request. Return to clinic in 1 year for complete exam or sooner with any problems. Age-related nuclear cataract, left eye - Educational material given Related to Age-related nuclear cataract, left eye Follow up - Return i n 1 year with for Complete Exam. Age-related nuclear cataract, bilateral - Educational material given Related to Age-related nuclear cataract, bilateral Impression/Plan - Di scussed cataracts with pt and treatment options. pt also understands at this time vision does not qualify to have CE with insurance coverage. Recommend artificial tears prn for dry eyes. Rosacea discussed in detail. No treatment needed at this time. Return to clinic in 1 year for complete exam or sooner with any problems. Follow up - Return i n 1 year with Edmund Zhang M.D. for Complete Exam. - Return in 1 year w ith Edmund Zhang M.D. for Complete Exam Related to See list of assessments above - Cataracts account for the patient's complaints. No treatment currently recommended. The patient will monitor vision changes and contact us with any decrease in vision. Return in 1 year for complete exam or sooner with any problems. Related to See list of assessments above SENILE NUCLEAR CATAR ACT - Educational material given Related to SENILE NUCLEAR CATARACT mild nsc ou - old rx rewritten for new lenses Educational materials provided to patient. Related to Senile nuclear cataract - 1yr Related to Senil e nuclear cataract pvd ou-notes floaters occ Relate d to Vitreous degeneration cataracts - no tx needed Assessments Type Assessment Date No Information Patient Care Teams Name Effective Dates (start - stop) Status Members No Information
[2025-07-30 17:00] LABS: Hematocrit 38.9 % (37.0-47.0); Hemoglobin 13.0 g/dL (12.0-15.0); Immature Granulocyte Percent A 0.1 % (0-0.5); Lymphocytes Absolute Auto 1.82 K/mm3 (0.9-3.2); Mean Corpuscular HGB Conc 33.4 g/dl (32-36); Mean Corpuscular Hemoglobin 35.1 pg (26-34); Mean Corpuscular Volume 105.1 fl (80-100); Nucleated Red Blood Cells Absolute Auto 0.000 K/mm3 (0.0-0.012); Nucleated Red Blood Cells Perc 0.0 % (0.0-0.2); Platelet Count Result 516 k/mm3 (150-375); Red Blood Count 3.70 M/mm3 (4.2-5.4); White Blood Count 6.8 K/mm3 (4.5-10.0)
[2025-07-30 17:13] LABS: Anion Gap 4 mmol/L (4-12); Blood Urea Nitrogen 27 mg/dL (7-17); Calcium 8.8 mg/dL (8.4-10.2); Carbon Dioxide 24 mmol/L (22-30); Chloride 105 mmol/L (98-107); Estimated Glomerular Filt Rate > 60; Glucose 97 mg/dL (65-110); Potassium 4.0 mmol/L (3.4-5.0); Sodium 133 mmol/L (137-145)
[2025-07-30 17:19] LABS: Iron 82 ug/dL (37-170)
[2025-07-30 17:28] LABS: Macrocytosis Occasional (NORMAL); Schistocytes None Seen
[2025-07-30 17:29] LABS: Percent Iron Saturation 26 % (20-50)
--- OUTSIDE RECORDS SUMMARY | 2025-07-30 17:54 | XMS_ITS | Clinical Summary ---
Author Organization [facility] Address [address] [address] Phone Care Team Providers Care Airway Traffic Controller Name Role Phone Julianna Hearn Primary Care [...] mg by mouth 2 times daily. 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
--- OUTSIDE RECORDS SUMMARY | 2025-07-30 17:54 | XMS_ITS | Encounter Summary ---
[facility] Address [facility] [id number] [place] [address] Care Team Providers Care Assembler Dry Cell And Battery Name Role Phone Julianna Hearn Primary Care Provider Reason for Visit * Reason Onset Date Comments labs for appt 07/30/2025 Encounter Details Date Type Department Care Team ([facility] Contact Info) Description 07/30/2025 Telephone [facility] - [place] [address] [place] [address] [facility] [address] [place] [address] Adiel Oliveira MD [address] [facility] [address] [place] [address] labs for appt Social History Tobacco Use Types Packs/Day Years [...] on file documented as of this encounter Miscellaneous Notes * Telephone Encounter - Rosana Hampton - 07/30/2025 9:11 AM CDT LVM for patient regarding labs for her appointment tomorrow. We would need to have her labs done prior to her appointment. documented in this encounter Plan of Treatment Upcoming Encounters Date Type Department Care Team ([facility] Contact Info) Description 07/31/2025 11:45 AM CDT Office Visit [facility] - [place] [address] [facility] [address] [place] [address] Adiel Oliveira MD [address] [facility] [address] [place] [address] documented as of this encounter Visit Diagnoses Not on filedocumented in this encounter Care Teams Assembler Dry Cell And Battery Relationship Specialty Start Date End Date Julianna Hearn PA PCP - General Physician Die Holder 05/03/18 documented as of this encounter
--- OUTSIDE RECORDS SUMMARY | 2025-07-30 17:54 | XMS_ITS | Clinical Summary ---
Author Organization [facility] Address [address] [facility] [place] [place] [address] Care Team Providers Care Electronic Musical Instrument Repairer Name Role Phone Julianna Hearn Primary Care Provider [phone] Allergies Active Allergy Reactions Criticality Noted Date [...] tablet 3 Active hydroxyurea (HYDREA) 500 mg capsuleIndications: Essential thrombocytosis Take 1 Capsule (500 mg) by mouth Tuesday thru Tuesday, and 2 capsules my mouth Tuesday and Tuesday. 108 Capsule 1 5 Active allopurinoL (ZYLOPRIM) 300 mg tabletIndications:E ssential thrombocytosis Take 1 Tablet (300 mg) by mouth daily. 90 Tablet 2 5 Active Active Problems Problem Noted Date [...] Encounters Date Type Department Care Team Description 07/30/2025 Telephone [facility] Oncology and Hematology [facility] [address] [place] [address] Adiel Oliveira MD labs for appt 07/23/2025 External Device Data ST[facility] ABSTRACTION Provider, Abstract 06/13/2025 Refill [facility] Oncology and Hematology [facility] [address] [place] [address] Adiel Oliveira MD Essential thrombocytosis (CMS/HCC) 06/04/2025 External Device Data ST[facility] ABSTRACTION Provider, Abstract 05/22/2025 External Device Data [facility] ABSTRACTION Provider, Abstract from Last 3 Months Family History Medical [...] Description 07/31/2025 11:45 AM CDT Office Visit [facility] Oncology and Hematology - [place] [address] [facility] [address] [place] [address] Adiel Oliveira MD [address] [facility] [address] [place] [address] Health Maintenance Due Date Last [...] HBA1C Q 6 MONTHS 01/07/20242022, 01/18/2023, 09/04/2019 Traditional Medicare (ACO) A nnual Wellness Visit 02/24/2024 02/22/2023 INFLUENZA VACCINE (#1) 2025 OSTEOPOROSIS SCREENING 12/30/2026 12/30/2021 COLORECTAL SCREENING Discontinued 04/01/2023, 04/01/2023, 01/03/2018, Additional history exists Colorectal Cancer Screening Discontinued FIT-DNA Q 3 years Discontinued FIT/FOBT Q 1 year Discontinued Flex Sig/CT Colonography Q 5 years Discontinued Insurance [employer] MEDICARE PART A AND B MEDICARE PART A AND B [employer] Member Subscriber Plan / Payer (Ef fective 2021-Present) Name:Amaris Sparks Relation to Subscriber:Self Name:Amaris Sparks Payer ID:Not on file Group ID:Not on file Type:Indemnity Address: [address] Care Teams Electronic Musical Instrument Repairer Relationship Specialty Start Date End Date Julianna Hearn PA PCP - General Physician Broom Maker 05/03/18
[2025-07-30 18:00] LABS: Ferritin 29.30 ng/mL (11.1-264)
== END 2025-07-30 16:22 | disposition home or self-care (01) ==
LOC: ANHLAB 16:25
PROVIDERS: PCP Physician Assistant; Visit Provider Internal Medicine Hematology & Oncology
DX: D47.3 Essential (hemorrhagic) thrombocythemia (principal); E61.1 Iron deficiency; I10 Essential (primary) hypertension
CPT/HCPCS: 36415; 80048; 82728; 83540; 83550; 85025